=== PATIENT | male | born 1955 | race African-American/Black ===

== ENCOUNTER 2017-03-07 20:50 | Emergency (ER) | payer MEDICAID ==
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
[2017-03-07 21:48] VITALS: BP 178/111
== END 2017-03-07 21:48 | disposition short-term general hospital (02) ==
LOC: UCEAST 20:50
DX: R51 Headache (principal); R06.00 Dyspnea, unspecified; R41.0 Disorientation, unspecified; Z88.6 Allergy status to analgesic agent; E78.5 Hyperlipidemia, unspecified; I10 Essential (primary) hypertension; J45.909 Unspecified asthma, uncomplicated; E66.9 Obesity, unspecified; F17.210 Nicotine dependence, cigarettes, uncomplicated
CPT/HCPCS: 93005; 99213; G0463

== ENCOUNTER 2017-03-07 22:02 | Emergency (ER) | payer MEDICAID ==
[2017-03-07] MEDS ORDERED: NS 0.9% 1000 ML* 1,000 ML IV SCH (22:15)
[2017-03-07 22:37] LABS: Hematocrit 36 % (42-52); Hemoglobin 11.6 g/dl (14.0-18.0); Mean Corpuscular HGB Conc 32 g/dl (31-36); Mean Corpuscular Hemoglobin 28 pg (27-31); Mean Corpuscular Volume 86 fL (80-94); Mean Platelet Volume 11 um3 (7.4-10.4); Red Blood Count 4.18 10^6/ul (4.0-5.4); Red Cell Distribution Width 20 % (10.5-15); White Blood Count 8.7 10^3/ul (3.5-10.8)
[2017-03-07 22:51] LABS: ALT 17 U/L (7-52); Albumin 3.9 g/dL (3.2-5.2); Alkaline Phosphatase 62 U/L (34-104); BUN/Creatinine Ratio 24.4 (8-20); Blood Urea Nitrogen 21 mg/dL (6-24); C Reactive Protein 25.62 mg/L (< 5.00); CO2 Carbon Dioxide 26 mmol/L (22-32); Chloride 103 mmol/L (101-111); EGFR African American 116.3 (>60); EGFR Non-African American 90.4 (>60); Globulin 3.5 g/dL (2-4); Glucose 123 mg/dL (70-100); Lipase 25 U/L (11.0-82.0); Sodium 136 mmol/L (133-145); Total Protein 7.4 g/dL (6.4-8.9)
[2017-03-07 22:54] LABS: Anion Gap 7 mmol/L (2-11)
[2017-03-07 22:59] LABS: TSH (Thyroid Stimulating Horm) 3.09 mcIU/mL (0.34-5.60)
[2017-03-07] MEDS ORDERED: Iohexol 350* (CONTRAST) 500 ML MDV IV ONE (23:59)
[2017-03-08] MEDS ORDERED: Clopidogrel TAB* 75 MG PO ONE (00:03)
[2017-03-08 00:12] LABS: Magnesium 2.3 mg/dL (1.9-2.7)
[2017-03-08 01:40] VITALS: BP 152/91
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
--- NOTE | 2017-03-08 07:43 | RAD ---
HISTORY: Intermittent left face arm and leg weakness COMPARISONS: None TECHNIQUE: Multiple contiguous axial CT scans were obtained of the head without intravenous contrast. FINDINGS: HEMORRHAGE/INFARCT: There is no hemorrhage or acute infarct. MASSES/SHIFT: There is no mass or shift. EXTRA-AXIAL SPACES: There are no extra-axial fluid collections. SULCI AND VENTRICLES: The sulci and ventricles are normal in size and position for the patient's stated age. CEREBRUM: There are no focal parenchymal abnormalities. BRAINSTEM: There are no focal parenchymal abnormalities. CEREBELLUM: There are no focal parenchymal abnormalities. VESSELS: The vessels are grossly normal. PARANASAL SINUSES: The paranasal sinuses are clear. ORBITS: The orbits are unremarkable. BONES AND SOFT TISSUE: No bone or soft tissue abnormalities are noted. OTHER: None IMPRESSION: NO ACUTE INTRACRANIAL PATHOLOGY.
--- NOTE | 2017-03-08 07:44 | RAD ---
INDICATION: Intermittent weakness. COMPARISON: There are no prior studies available for comparison. TECHNIQUE: An AP view of the chest was obtained sitting. FINDINGS: The heart is within normal limits in size. The lungs are clear. No pleural effusion is present. IMPRESSION: NO EVIDENCE FOR ACTIVE CARDIOPULMONARY DISEASE.
--- NOTE | 2017-03-08 08:12 | RAD ---
HISTORY: Intermittent left face arm and leg weakness COMPARISONS: None TECHNIQUE: Multiple contiguous axial CT scans were obtained of the head and neck After the administration of nonionic intravenous contrast timed to the systemic arterial phase of contrast enhancement. Coronal and sagittal multiplanar reformations are submitted for review. Multiple 3-D maximum intensity projection reconstructions are also submitted for review. FINDINGS: Evaluation is markedly limited by suboptimal contrast opacification. CTA NECK: AORTIC ARCH: There is a bovine configuration, with the left common carotid artery originating from the brachiocephalic trunk. There is no ostial or proximal stenosis of the cephalic great vessels. RIGHT VERTEBRAL ARTERY: The right vertebral artery is patent along its course, without stenosis. LEFT VERTEBRAL ARTERY: The left vertebral artery is patent along its course, without stenosis. DOMINANCE: The left vertebral artery is dominant. RIGHT COMMON CAROTID ARTERY: The right common carotid artery is patent. The right carotid bifurcation occurs at C3-C4 RIGHT INTERNAL CAROTID ARTERY: There is atheromatous disease of the right carotid bifurcation, without right internal carotid artery stenosis by NASCET criteria. RIGHT EXTERNAL CAROTID ARTERY: The right external carotid artery is unremarkable. LEFT COMMON CAROTID ARTERY: The left common carotid artery is patent. The left carotid bifurcation occurs at C3-C4 LEFT INTERNAL CAROTID ARTERY: There is atheromatous disease of the left carotid bifurcation, without left internal carotid artery stenosis by NASCET criteria. LEFT EXTERNAL CAROTID ARTERY: The left external carotid artery is unremarkable. VENOUS CIRCULATION: The venous system is unremarkable. SALIVARY GLANDS: The parotid glands, submandibular glands, sublingual glands are normal. NASAL CAVITY/NASOPHARYNX: The nasal cavity and nasopharynx are normal. ORAL CAVITY/OROPHARYNX: The oral cavity is obscured by streak artifact from dental amalgam. The visualized oral cavity and oropharynx are unremarkable. 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 LUNG APICES: There is right apical bullous disease THYROID GLAND: The thyroid gland is normal. LYMPH NODES: There is no lymphadenopathy by size criteria. BONES AND SOFT TISSUES: Degenerative changes are noted of the spine CTA HEAD: INTRACRANIAL CIRCULATION: There is no aneurysm, vascular malformation, occlusion, or stenosis of the visualized intracranial circulation. The anterior communicating artery complex is clear. The posterior communicating arteries are diminutive, if present. This VENOUS CIRCULATION: The venous system is unremarkable. PERFUSION: There is no obvious parenchymal perfusion deficit. HEMORRHAGE/INFARCT: There is no hemorrhage or acute infarct. MASSES/SHIFT: There is no mass or shift. EXTRA-AXIAL SPACES: There are no extra-axial fluid collections. SULCI AND VENTRICLES: The sulci and ventricles are normal in size and position for the patient's stated age. CEREBRUM: There are no focal parenchymal abnormalities. BRAINSTEM: There are no focal parenchymal abnormalities. CEREBELLUM: There are no focal parenchymal abnormalities. PARANASAL SINUSES: The paranasal sinuses are clear. ORBITS: The orbits are unremarkable. BONES AND SOFT TISSUE: No bone or soft tissue abnormalities are noted. OTHER: There is no abnormal enhancement. IMPRESSION: 1. LIMITED STUDY. 2. WITHIN THE LIMITATIONS OF STUDY, THERE IS NO ANEURYSM, VASCULAR MALFORMATION, OCCLUSION, OR STENOSIS OF THE INTRACRANIAL CIRCULATION. 3. NO INTERNAL CAROTID ARTERY STENOSIS BY NASCET CRITERIA. 4. LEFT LATERAL LARYNGOCELE. PRELIMINARY FINDINGS WERE REVIEWED WITH DR. GEORGES ON THE MORNING OF 2016 CPT II Codes: 3100F
== END 2017-03-08 01:38 | disposition left against medical advice (07) ==
LOC: ED 22:02
DX: G45.9 Transient cerebral ischemic attack, unspecified (principal); R51 Headache; R53.1 Weakness; R10.84 Generalized abdominal pain; Z53.21 Procedure and treatment not carried out due to patient leaving prior to being seen by health care provider
CPT/HCPCS: 36415; 70450; 70496; 70498; 71010; 80053; 83605; 83690; 83735; 84443; 84484; 85025; 85610; 85730; 86140; 96360; 99285; A9270-GY; Q9967

== ENCOUNTER 2017-05-19 11:09 | Emergency (ER) | payer OTHER ==
[2017-05-19 11:33] VITALS: BP 164/89
[2017-05-19] MEDS ORDERED: Clindamycin CAP* 150 MG PO ONE ×2 (12:39→12:42)
[2017-05-19] MEDS ORDERED: Ketorolac INJ* 30 MG/ML 1 ML VIAL IM ONE (12:40)
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
== END 2017-05-19 13:15 | disposition home or self-care (01) ==
LOC: UCEAST 11:09
DX: F15.90 Other stimulant use, unspecified, uncomplicated (principal); Z72.0 Tobacco use; K04.7 Periapical abscess without sinus
CPT/HCPCS: 96372; 99212; A9270-GY; G0463; J1885

== ENCOUNTER 2017-05-19 14:55 | Emergency (ER) | payer OTHER ==
[2017-05-19 16:39] LABS: Hematocrit 34 % (42-52); Hemoglobin 10.9 g/dl (14.0-18.0); Mean Corpuscular HGB Conc 33 g/dl (31-36); Mean Corpuscular Hemoglobin 28 pg (27-31); Mean Corpuscular Volume 87 fL (80-94); Mean Platelet Volume 9 um3 (7.4-10.4); Red Blood Count 3.88 10^6/ul (4.0-5.4); Red Cell Distribution Width 19 % (10.5-15); White Blood Count 8.9 10^3/ul (3.5-10.8)
[2017-05-19 16:41] LABS: Add Diff/Slide Review? Slide Review Added; Comments Flag Yes
[2017-05-19 16:49] LABS: Albumin 3.7 g/dL (3.2-5.2); BUN/Creatinine Ratio 23.5 (8-20); Calcium 9.1 mg/dL (8.6-10.3); EGFR African American 124.6 (>60); EGFR Non-African American 96.9 (>60); Globulin 3.8 g/dL (2-4); Potassium 3.7 mmol/L (3.5-5.0); Total Bilirubin 0.6 mg/dL (0.2-1.0); Total Protein 7.5 g/dL (6.4-8.9)
[2017-05-19] MEDS ORDERED: Iohexol 300* (CONTRAST) 10 ML SDV IV ONE (16:55)
--- NOTE | 2017-05-19 17:31 | RAD ---
indication: Dental abscess x5 days COMPARISON: None A CT scan of the maxillofacial bones was performed after the intravenous injection of 50 mL Omnipaque 300. Contiguous axial sections were obtained from the level of the hyoid bone to just above the frontal sinuses. Findings: Soft tissues: There is swelling and induration of the soft tissues overlying the midline and left mandible. There is multifocal gas immediately adjacent to the external left mandible. There is no definite drainable fluid collection. At the right of midline there is a submandibular lymph node measuring 1.3 cm in short axis diameter (axial image 5 and coronal image 31). Close to the angle of the left mandible there is a subcutaneous lymph node measuring 1.1 cm in short axis diameter. There is a top normal left level 1 cervical chain lymph node measuring 1.3 cm in short axis diameter (coronal image 55). At the left parotid gland there are at least 2 soft tissue nodules measuring 5 and 7 mm in short axis diameter. These are most likely small lymph nodes, possibly reactive related to the peridental findings. Bones: The mandible is intact. There are no definite signs of osteomyelitis. Orbits: The globes are round. The optic nerves are symmetric. The extraocular musculature is normal. There is no post septal or intraconal inflammatory change. There is no retrobulbar hematoma. Paranasal Sinuses: The paranasal sinuses are clear. Visualized brain: The limited views of the brain do not demonstrate any acute abnormality or extra-axial hemorrhage. IMPRESSION: 1. CT findings are consistent with phlegmonous change external and immediately adjacent to the left anterior mandible. Foci of gas adjacent to the mandible could be seen in the setting of infection. There are no signs of osteomyelitis involving the mandible. There is no definite drainable fluid collection. 2. Mild left-sided lymphadenopathy is consistent with the patient's presentation of phlegmonous dental collection.
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
[2017-05-19 18:14] VITALS: BP 154/90
== END 2017-05-19 18:13 | disposition home or self-care (01) ==
LOC: ED 14:55
DX: K04.7 Periapical abscess without sinus (principal); I10 Essential (primary) hypertension; Z79.899 Other long term (current) drug therapy; F17.210 Nicotine dependence, cigarettes, uncomplicated
CPT/HCPCS: 36415; 70487; 80053; 83605; 85025; 99283; Q9967

== ENCOUNTER 2018-05-16 15:32 | Emergency (ER) | payer OTHER ==
--- OUTSIDE RECORDS SUMMARY | 2018-05-16 15:37 | XMS REPORT ---
:1955 External Reference #:[id number] Author Organization [facility] Address [address] [place] [address] Phone [phone] Care Team Providers Name Role Phone Joy Hays MD Primary Care Physician Unavailable Payers Type Date Identification Numbers Payment Provider Subscriber Medicaid Expires: Policy Number: [id number] Medicaid Jean Pierre Hurst 2017 Group Name: 1 1 [address] PayID: [id number] [place] [address] Commercial Policy Number: [id number] [place] Medicaid Jean Pierre Hurst PayID: [id number] [address] [address] [place] [address] Commercial Expires: Policy Number: [employer] Jean Pierre Hurst 2017 [id number] [employer] PayID: [id number] [address] [address] [place] [address] Problems Date Description Provider Status Onset: 08/21/2014 Benign hypertension Regulojimmy Gan NP Active Onset: 08/21/2014 Hyperlipidemia Regulojimmy Gan NP Active Onset: 08/21/2014 Gastroesophageal reflux disease Regulo Gan [employer] RE[employer]ER Active Onset: 08/21/2014 Asthma without status asthmaticus Regulo Gan NP Active Onset: 08/21/2014 Viral hepatitis C Regulo Gan NP Active Onset: 08/21/2014 Cannot sustain an erection Regulo Gan NP Active Onset: 09/17/2014 Impaired fasting glycaemia Regulo Gan NP Active Onset: 01/11/2017 Obstructive sleep apnea syndrome Cara Mcgee DNP, RN, Active MEDICATION AID-BC Onset: 01/11/2017 Hypersomnia Cara Mcgee DNP, RN, Active MEDICATION AID-BC Onset: 02/24/2017 Spinal stenosis of lumbar region Inder Ragsdale M.D. Active Onset: 04/03/2017 Neurogenic claudication Inder Ragsdale M.D. Active co-occurrent and due to spinal stenosis of lumbar region Family History Date Family Member(s) Problem(s) Comments General No family history reported Father Lung Cancer Mother Hypertension Mother Heart Disease Mother Diabetes Social History Type Date Description Comments Marital Status Lives With Occupation Disabled Occupation Unemployed Cigarette Use Light tobacco smoker (10 or 1/2 pack/day x 20 yrs, fewer cigarettes/day) Onset smoking age 8: smoked 2 ppd x 15 years and 1/2 ppd x 30+years est 45 pack year history. 10-15/ day 06/21/17 ETOH Use Rarely consumes alcohol Smoking Patient is a current smoker, 1/2PPD, started smoking at smokes every day age 8yrs -15/ day 06/21/17 Recreational Drug Use Denies Drug Use Daily Caffeine Consumes on average 1 cup of regular coffee per day Daily Caffeine Consumes on average 3 sodas 2-5 per day Exercise Type/Frequency Does not exercise Allergies, Adverse Reactions, Alerts Date Description Reaction Status Severity Comments 08/20/2014 Aspirin Nausea and Vomiting active Mild to Moderate 01/11/2017 Hay Fever active Medications Medication Date Status Form Strength Qnty SIG Indications Ordering Provider Tramadol HCL 05/07 Active Tablets 50mg 20tab 1 by M51.36 Inder s mouth [place], every 6 M.D. hours as needed pain Arnuity Ellipta 04/10 Active Aerosol 100mcg/Ac 30uni one puff t ts once FERNANDO Gan daily Valium /11 Active Tablets 10mg 1tabs Take 30 M51.16 Regulo /2017 minutes FERNANDO Gan prior to MRI Sildenafil 10/11 Active Tablets 100mg 10tab 1 tab 30 Regulo s mins FERNANDO Gan prior to intercour se Chlorthalidone 10/11 Active Tablets 25mg 30tab 1 by I10 s mouth FERNANDO Gan every day Lidocaine 08/25 Active Cream 4% 30gm apply to M25.551 Regulo 2018 affected FERNANDO Gan areas 3 or 4 times daily Trazodone HCL 05/23 Active Tablets 50mg 30tab 1-2 Regulo s tablets FERNANDO Gan at bedtime as needed. Miralax 05/04 Active Powder 3350NF 510un dissolve K59.00 Regulo its 1 FERNANDO Gan tablespoo nful once daily in liquid as needed Clopidogrel 03/08 Active Tablets 75mg 1 tab Wallace, Bisulfate daily Kory Santiago MD Cane/Adjustable/A 11/10 Active Misc 1unit Use while M79.604 Regulo luminum/Round /2016 s ambulatin FERNANDO Gan Handle g Loratadine 11/10 Active Tablets 10mg 30tab Take 1 Joy /2017 s Tablet Cotton, Every Day M.D. Nebulizer 11/03 Active Device 1unit use for J45.20 Regulo s albuterol FERNANDO Gan nebulized solution up to 4 times a day. Nebulizer 11/03 Active Kit QS for use 4 J45.20 Regulo Kit/Tubing/Mouthp /2014 times FERNANDO Gan iece daily as needed Albuterol Sulfate 11/03 Active Nebulizer (2.5mg/3M 100un 1 vial J45.20 Regulo L) 0.083% its every 6 FERNANDO Gan hour as needed. Amlodipine 11/03 Active Tablets 10-320mg 30tab 1 tab I10 Regulo Besylate-Valsarta s once FERNANDO Gan n daily Atorvastatin 08/20 Active Tablets 10mg 30tab take 1 Regulo Calcium s tablet FERNANDO Gan every day Proair HFA 08/20 Active Aerosol 108(90Bas 8.5un take 2 Regulo e) its puffs FERNANDO Gan mcg/Act every 4 hours as needed for shortness of breath. Omeprazole 08/[address] 20mg 30cap Take One K21.9 Regulo s Capsule FERNANDO Gan Every Day Fluticasone 08/20 Active Suspension 50mcg/Act 16uni Instill 1 Regulo Propionate ts [place] FERNANDO Gan Each Nostril Every Day Naproxen 08/20 Active Tablets 500mg 60tab Take 1 Regulo s Tablet By FERNANDO Gan Mouth Twice A Day as Needed With Food Flovent HFA 10/09 Hx Aerosol 220mcg/Ac 12gm 2 puffs Regulo t twice Malik, [employer] - daily, 04/10 rinse mouth after use. Azithromycin 10/09 Hx Tablets 250mg 6tabs 2 tabs by J45.21 Regulo mouth Malik, [employer] - every day 10/14 x1 day, tab by mouth every day x 4 days Guaifenesin-Codei 10/09 Hx Syrup 100-10mg/ 240ml 5-10ml J20.9 Regulo 5ML every 4-6 Malik [employer] REPA[employer]ER - hours for 10/23 cough Flovent HFA 08/29 Hx Aerosol 110mcg/Ac 12gm 2 puffs Regulo t twice Malik, [employer] REPA[employer]ER - daily, 10/09 rinse mouth after use. Tramadol HCL 08/25 Hx Tablets 50mg 20tab 1-2 M25.551 Regulo s tablets Malik, [employer]ER - every 8 02/15 hours needed for pain. Qvar Redihaler 08/25 Hx Aerosol 80mcg/Act 10.6u Take 2 nits Inhalatio FERNANDO Gan - ns Twice 02/15 Daily Oxycodone-Acetami 05/23 Hx Tablets 7.5-325mg 20tab one Regulo nop s tablet FERNANDO Gan - every 4-6 08/24 hours for pain Amoxicillin/Clavu 05/17 Hx Tablets 875-125mg 14tab 1 by K08.89 Francois butts s mouth Shauna, - twice a M.D. Hydroxyzine HCL 05/12 Hx Tablets 25mg 60tab 1-2 Regulo s tablets Malik [employer] - by mouth 05/23 Qhs prn sleep. May also take 1-2 tabs Q 6 hrs for anxiety Valium 01/25 Hx Tablets 10mg 1tabs Take 30 M51.16 Regulo minutes FERNANDO Gan - prior to 02/24 Meloxicam 01/25 Hx Tablets 15mg 30tab Take 1 Regulo s Tablet By Malik [employer] - Mouth 03/09 Every Day With Food as Needed Baclofen 12/07 Hx Tablets 10mg 30tab Take 1/2 M79.604 Regulo s Tablet By FERNANDO Gan - Mouth 08/24 Every Hours as Needed For Muscle Spasm Gabapentin 11/10 Hx Capsules 300mg 60cap 1 cap PO M79.604 Regulo s QHS. FERNANDO Gan - After 12/07 days may oncrease to one cap bid. Qvar 11/10 Hx Aerosol 80mcg/Act 8.7un Take 2 Regulo its Puffs FERNANDO Gan - Twice A Qvar 02/11 Hx Aerosol 80mcg/Act 8.700 2 puffs gm twice FERNANDO Gan - daily 11/10 Viagra 02/09 Hx Tablets 100mg 10tab take one Regulo s tablet at FERNANDO Gan - least 30 04/05 mint prior to intercour se. Hydrochlorothiazi 01/28 Hx Tablets 25mg 30tab Take 1 I10 Regulo s Tablet FERNANDO aGn - Every Day 04/05 Valium 12/12 Hx Tablets 10mg 1tabs Take 30 minutes FERNANDO Gan - prior to 01/02 Viagra 11/03 Hx Tablets 50mg 302.72 Regulo FERNANDO Gan - 11/03 Viagra 11/03 Hx Tablets 50mg 5tabs one tablet FERNANDO Gan - 30-60 prior to intercour se Flovent Diskus 11/03 Hx Aerosol 100mcg/Bl 1unit 1 493.00 ist s inhalatio FERNANDO Gan - n twice 02/11 daily. Augmentin 09/17 Hx Tablets 875-125mg 14tab 1 tablet 466.0 s by mouth FERNANDO Gan - q12 hours 09/23 for days Cialis 08/20 Hx Tablets 20mg 30tab one tab 302.72 Regulo s 30 FERNANDO Gan - minutes 11/03 prior intercour se Amlodipine 08/20 Hx Tablets 10-160mg 30tab Take 1 Regulo Besylate-Valsarta s Tablet FERNANDO Gan n - Every Day 11/03 Lisinopril 00 Hx Tablets 40mg 1 by Unknown /0000 mouth - every day 08/20 Hydrochlorothiazi 00 Hx Tablets 25mg 1 by Unknown de /0000 mouth - every day 08/20 Amlodipine Hx Tablets 10mg 1 by Regulo Besylate /0000 mouth FERNANDO Gan - every day 08/20 Proair HFA 00 Hx Aerosol 108(90Bas 2 puffs Unknown /0000 e) by mouth - mcg/Act every 4 08/20 hours needed Fluticasone Hx Suspension 50mcg/Act 16gm 2 sprays [place], Propionate / each MD Diane - nostril 08/20 daily needed Clindamycin HCL Hx Capsules 300mg Sarbescy, /0000 Siena DDS - 08/24 Penicillin V Hx Tablets 250mg Unknown Potassium /0000 - 08/24 Hydrocodone-Aceta Hx Tablets 5-325mg Unknown minophen /0000 - 05/22 Immunizations CPT Code Status Date Vaccine Lot # 84372 Given 03/08/2011 Pneumonia Vaccine [id number] Given 04/15/2009 Afluria Vaccine 15749 Given 12/31/2008 Tetanus And Diptheria (Td) For Adult Use Preservative Free 41572 Given 12/31/2008 Measles Mumps And Rubella MMR Vital Signs Date Vital Result Comment 05/09/2018 Height 72 inches 6'0" Weight 263.00 lb Heart Rate 83 /min BP Systolic 169 mmHg BP Diastolic 106 mmHg BP Systolic Recheck 162 mmHg BP Diastolic Recheck 108 mmHg O2 % BldC Oximetry 97 % BMI (Body Mass Index) 35.7 kg/m2 05/07/2018 Height 72 inches 6'0" Weight 263.00 lb Heart Rate 88 /min BP Systolic Sitting 170 mmHg Lue lg cuff BP Diastolic Sitting 118 mmHg Lue lg cuff Pain Level 7 BMI (Body Mass Index) 35.7 kg/m2 04/05/2018 Height 72 inches 6'0" Weight 263.00 lb Heart Rate 86 /min BP Systolic 178 mmHg BP Diastolic 114 mmHg BP Systolic Recheck 160 mmHg BP Diastolic Recheck 100 mmHg Body Temperature 97.6 F O2 % BldC Oximetry 100 % BMI (Body Mass Index) 35.7 kg/m2 02/15/2018 Height 72 inches 6'0" Weight 263.00 lb Heart Rate 94 /min BP Systolic Sitting 153 mmHg BP Diastolic Sitting 101 mmHg O2 % BldC Oximetry 97 % BMI (Body Mass Index) 35.7 kg/m2 10/17/2017 Weight 282.25 lb Heart Rate 96 /min BP Systolic 136 mmHg BP Diastolic 72 mmHg Body Temperature 97.2 F O2 % BldC Oximetry 95 % 10/09/2017 Weight 278.00 lb Heart Rate 94 /min BP Systolic Sitting 146 mmHg BP Diastolic Sitting 98 mmHg Body Temperature 97.6 F O2 % BldC Oximetry 90 % Recheck 95% 08/25/2017 Weight 285.25 lb Heart Rate 92 /min BP Systolic Sitting 132 mmHg BP Diastolic Sitting 92 mmHg O2 % BldC Oximetry 98 % 06/28/2017 Height 72 inches 6'0" Weight 297.00 lb Heart Rate 90 /min BP Systolic Sitting 150 mmHg BP Diastolic Sitting 88 mmHg Pain Level 4 BMI (Body Mass Index) 40.3 kg/m2 06/21/2017 Height 72 inches 6'0" Weight 297.38 lb with shoes Heart Rate 100 /min BP Systolic Sitting 134 mmHg Rue large cuff BP Diastolic Sitting 100 mmHg Rue large cuff Respiratory Rate 18 /min O2 % BldC Oximetry 97 % On Ra BMI (Body Mass Index) 40.3 kg/m2 05/23/2017 Height 72 inches 6'0" Weight 302.00 lb Heart Rate 89 /min BP Systolic Sitting 134 mmHg BP Diastolic Sitting 92 mmHg Body Temperature 97.3 F O2 % BldC Oximetry 96 % BMI (Body Mass Index) 41.0 kg/m2 05/17/2017 Height 72 inches 6'0" Weight 298.00 lb Heart Rate 102 /min BP Systolic Sitting 132 mmHg BP Diastolic Sitting 96 mmHg Body Temperature 97.0 F O2 % BldC Oximetry 97 % BMI (Body Mass Index) 40.4 kg/m2 05/04/2017 Weight 296.75 lb Heart Rate 88 /min BP Systolic 140 mmHg BP Diastolic 88 mmHg O2 % BldC Oximetry 99 % 04/03/2017 Height 72 inches 6'0" Weight 303.00 lb Heart Rate 88 /min BP Systolic Sitting 140 mmHg BP Diastolic Sitting 90 mmHg Pain Level 8 BMI (Body Mass Index) 41.1 kg/m2 03/09/2017 Weight 303.00 lb Heart Rate 88 /min BP Systolic Sitting 142 mmHg BP Diastolic Sitting 90 mmHg Pain Level 7 Lower back 02/24/2017 Height 72 inches 6'0" Weight 300.00 lb Heart Rate 82 /min BP Systolic Sitting 150 mmHg BP Diastolic Sitting 82 mmHg Pain Level 8 BMI (Body Mass Index) 40.7 kg/m2 02/22/2017 Height 72 inches 6'0" Weight 300.00 lb Heart Rate 84 /min BP Systolic Sitting 156 mmHg BP Diastolic Sitting 110 mmHg Respiratory Rate 14 /min O2 % BldC Oximetry 94 % BMI (Body Mass Index) 40.7 kg/m2 01/25/2017 Heart Rate 78 /min BP Systolic Sitting 134 mmHg BP Diastolic Sitting 96 mmHg O2 % BldC Oximetry 97 % 01/11/2017 Height 72 inches 6'0" Weight 300.00 lb Heart Rate 76 /min BP Systolic Sitting 160 mmHg BP Diastolic Sitting 102 mmHg Respiratory Rate 14 /min O2 % BldC Oximetry 98 % BMI (Body Mass Index) 40.7 kg/m2 12/15/2016 Heart Rate 86 /min BP Systolic Sitting 128 mmHg BP Diastolic Sitting 86 mmHg O2 % BldC Oximetry 95 % 12/12/2016 Height 72 inches 6'0" Weight 294.00 lb Heart Rate 90 /min BP Systolic Sitting 136 mmHg BP Diastolic Sitting 88 mmHg Respiratory Rate 20 /min O2 % BldC Oximetry 95 % room air BMI (Body Mass Index) 39.9 kg/m2 Neck Circumference in inches 18.5 12/07/2016 Heart Rate 77 /min BP Systolic Sitting 142 mmHg BP Diastolic Sitting 92 mmHg O2 % BldC Oximetry 95 % 11/10/2016 Weight 285.75 lb Heart Rate 93 /min BP Systolic 126 mmHg BP Diastolic 66 mmHg Body Temperature 97.3 F O2 % BldC Oximetry 95 % 03/03/2015 Weight 265.00 lb Heart Rate 85 /min BP Systolic Sitting 142 mmHg BP Diastolic Sitting 94 mmHg BP Systolic Recheck 138 mmHg BP Diastolic Recheck 88 mmHg 02/09/2015 Height 71.5 inches 5'11.50" Weight 266.00 lb Heart Rate 94 /min BP Systolic Sitting 138 mmHg BP Diastolic Sitting 94 mmHg Body Temperature 97.9 F O2 % BldC Oximetry 98 % BMI (Body Mass Index) 36.6 kg/m2 01/28/2015 Weight 264.50 lb Heart Rate 103 /min BP Systolic Sitting 156 mmHg BP Diastolic Sitting 103 mmHg BP Systolic Recheck 152 mmHg BP Diastolic Recheck 96 mmHg 12/04/2014 Height 71 inches 5'11" Weight 268.00 lb Heart Rate 102 /min BP Systolic 143 mmHg BP Diastolic 88 mmHg Body Temperature 98.6 F O2 % BldC Oximetry 95 % BMI (Body Mass Index) 37.4 kg/m2 11/03/2014 Weight 267.00 lb Heart Rate 95 /min BP Systolic Sitting 149 mmHg BP Diastolic Sitting 93 mmHg Body Temperature 97.4 F O2 % BldC Oximetry 96 % Peak Flow Meter 500, 50 09/17/2014 Height 71 inches 5'11" Weight 271.00 lb Heart Rate 93 /min BP Systolic 143 mmHg 140/90 manual recheck BP Diastolic 93 mmHg 140/90 manual recheck Body Temperature 98.0 F BMI (Body Mass Index) 37.8 kg/m2 08/20/2014 Height 71 inches 5'11" Weight 277.00 lb Heart Rate 85 /min BP Systolic 145 mmHg BP Diastolic 90 mmHg Body Temperature 98.3 F BMI (Body Mass Index) 38.6 kg/m2 Results Test Date Test Result H/L Range Note CBC Auto Diff 05/03/2018 White Blood Count 6.0 10^3/uL 3.5-10.8 Red Blood Count 4.16 10^6/uL 4.00-5.40 Hemoglobin 13.5 g/dL Low 14.0-18.0 Hematocrit 40 % Low 42-52 Mean Corpuscular Volume 97 fL High 80-94 Mean Corpuscular Hemoglobin 32 pg High 27-31 Mean Corpuscular HGB Conc 34 g/dL 31-36 Red Cell Distribution Width 17 % High 10.5-15 Platelet Count 130 10^3/uL Low 150-450 1 Mean Platelet Volume 10.4 fL 7.4-10.4 Large Platelets Present Abs Neutrophils 3.3 10^3/uL 1.5-7.7 Abs Lymphocytes 2.1 10^3/uL 1.0-4.8 Abs Monocytes 0.5 10^3/uL 0-0.8 Abs Eosinophils 0.1 10^3/uL 0-0.6 Abs Basophils 0 10^3/uL 0-0.2 Abs Nucleated RBC 0 10^3/uL Granulocyte % 55.6 % 38-83 Lymphocyte % 34.4 % 25-47 Monocyte % 7.8 % High 0-7 Eosinophil % 1.5 % 0-6 Basophil % 0.7 % 0-2 Nucleated Red Blood Cells % 0.1 Comp Metabolic Panel 05/03/2018 Sodium 138 mmol/L 135-145 Potassium 3.4 mmol/L Low 3.5-5.0 Chloride 102 mmol/L 101-111 Co2 Carbon Dioxide 28 mmol/L 22-32 Anion Gap 8 mmol/L 2-11 Glucose 103 mg/dL High 70-100 Blood Urea Nitrogen 11 mg/dL 6-24 Creatinine 0.73 mg/dL 0.67-1.17 BUN/Creatinine Ratio 15.1 8-20 Calcium 9.2 mg/dL 8.6-10.3 Total Protein 7.0 g/dL 6.4-8.9 Albumin 3.7 g/dL 3.2-5.2 Globulin 3.3 g/dL 2-4 Albumin/Globulin Ratio 1.1 1-3 Total Bilirubin 0.30 mg/dL 0.2-1.0 Alkaline Phosphatase 60 U/L 34-104 Alt 31 U/L 7-52 Ast 27 U/L 13-39 Egfr Non- 108.9 >60 Egfr 131.7 >60 2 Laboratory test finding 05/03/2018 TSH (Thyroid Stim Horm) 1.25 mcIU/mL 0.34-5.60 Vitamin B12 281 pg/mL 180-914 3 Cell Morphology 05/03/2018 Hypochromasia 1+ Anisocytosis 1+ CBC Auto Diff 05/19/2017 White Blood Count 8.9 10^3/uL 3.5-10.8 Red Blood Count 3.88 10^6/uL Low 4.0-5.4 Hemoglobin 10.9 g/dL Low 14.0-18.0 Hematocrit 34 % Low 42-52 Mean Corpuscular Volume 87 fL 80-94 Mean Corpuscular Hemoglobin 28 pg 27-31 Mean Corpuscular HGB Conc 33 g/dL 31-36 Red Cell Distribution Width 19 % High 10.5-15 Platelet Count 206 10^3/uL 150-450 Mean Platelet Volume 9 um3 7.4-10.4 Abs Neutrophils 6.2 10^3/uL 1.5-7.7 Abs Lymphocytes 1.7 10^3/uL 1.0-4.8 Abs Monocytes 0.7 10^3/uL 0-0.8 Abs Eosinophils 0.1 10^3/uL 0-0.6 Abs Basophils 0.1 10^3/uL 0-0.2 Abs Nucleated RBC 0.01 10^3/uL Granulocyte % 69.4 % 38-83 Lymphocyte % 19.6 % Low 25-47 Monocyte % 8.3 % 1-9 Eosinophil % 1.6 % 0-6 Basophil % 1.1 % 0-2 Nucleated Red Blood Cells % 0.1 Laboratory test finding 05/19/2017 Lactic Acid 0.7 mmol/L 0.5-2.0 4 Comp Metabolic Panel 05/19/2017 Sodium 135 mmol/L 133-145 Potassium 3.7 mmol/L 3.5-5.0 Chloride 104 mmol/L 101-111 Co2 Carbon Dioxide 25 mmol/L 22-32 Anion Gap 6 mmol/L 2-11 Glucose 103 mg/dL High 70-100 Blood Urea Nitrogen 19 mg/dL 6-24 Creatinine 0.81 mg/dL 0.67-1.17 BUN/Creatinine Ratio 23.5 High 8-20 Calcium 9.1 mg/dL 8.6-10.3 Total Protein 7.5 g/dL 6.4-8.9 Albumin 3.7 g/dL 3.2-5.2 Globulin 3.8 g/dL 2-4 Albumin/Globulin Ratio 1.0 1-3 Total Bilirubin 0.60 mg/dL 0.2-1.0 Alkaline Phosphatase 57 U/L 34-104 Alt 15 U/L 7-52 Ast 15 U/L 13-39 Egfr Non- 96.9 >60 Egfr 124.6 >60 5 CBC Auto Diff 05/04/2017 White Blood Count 6.8 10^3/uL 3.5-10.8 Red Blood Count 4.22 10^6/uL 4.0-5.4 Hemoglobin 11.7 g/dL Low 14.0-18.0 Hematocrit 37 % Low 42-52 Mean Corpuscular Volume 87 fL 80-94 Mean Corpuscular Hemoglobin 28 pg 27-31 Mean Corpuscular HGB Conc 32 g/dL 31-36 Red Cell Distribution Width 19 % High 10.5-15 Platelet Count 200 10^3/uL 150-450 Mean Platelet Volume 9 um3 7.4-10.4 Abs Neutrophils 4.1 10^3/uL 1.5-7.7 Abs Lymphocytes 1.8 10^3/uL 1.0-4.8 Abs Monocytes 0.5 10^3/uL 0-0.8 Abs Eosinophils 0.2 10^3/uL 0-0.6 Abs Basophils 0.1 10^3/uL 0-0.2 Abs Nucleated RBC 0 10^3/uL Granulocyte % 61.0 % 38-83 Lymphocyte % 27.3 % 25-47 Monocyte % 7.8 % 1-9 Eosinophil % 3.0 % 0-6 Basophil % 0.9 % 0-2 Nucleated Red Blood Cells % 0 Comp Metabolic Panel 05/04/2017 Sodium 139 mmol/L 133-145 Potassium 3.6 mmol/L 3.5-5.0 Chloride 102 mmol/L 101-111 Co2 Carbon Dioxide 30 mmol/L 22-32 Anion Gap 7 mmol/L 2-11 Glucose 113 mg/dL High 70-100 Blood Urea Nitrogen 13 mg/dL 6-24 Creatinine 0.87 mg/dL 0.67-1.17 BUN/Creatinine Ratio 14.9 8-20 Calcium 9.1 mg/dL 8.6-10.3 Total Protein 7.2 g/dL 6.4-8.9 Albumin 3.8 g/dL 3.2-5.2 Globulin 3.4 g/dL 2-4 Albumin/Globulin Ratio 1.1 1-3 Total Bilirubin 0.50 mg/dL 0.2-1.0 Alkaline Phosphatase 61 U/L 34-104 Alt 18 U/L 7-52 Ast 18 U/L 13-39 Egfr Non- 89.2 >60 Egfr 114.7 >60 6 CBC Auto Diff 03/07/2017 White Blood Count 8.7 10^3/uL 3.5-10.8 Red Blood Count 4.18 10^6/uL 4.0-5.4 Hemoglobin 11.6 g/dL Low 14.0-18.0 Hematocrit 36 % Low 42-52 Mean Corpuscular Volume 86 fL 80-94 Mean Corpuscular Hemoglobin 28 pg 27-31 Mean Corpuscular HGB Conc 32 g/dL 31-36 Red Cell Distribution Width 20 % High 10.5-15 Platelet Count 195 10^3/uL 150-450 Mean Platelet Volume 11 um3 High 7.4-10.4 Abs Neutrophils 5.8 10^3/uL 1.5-7.7 Abs Lymphocytes 1.9 10^3/uL 1.0-4.8 Abs Monocytes 0.7 10^3/uL 0-0.8 Abs Eosinophils 0.2 10^3/uL 0-0.6 Abs Basophils 0.1 10^3/uL 0-0.2 Abs Nucleated RBC 0.01 10^3/uL Granulocyte % 66.5 % 38-83 Lymphocyte % 22.2 % Low 25-47 Monocyte % 8.3 % 1-9 Eosinophil % 2.2 % 0-6 Basophil % 0.8 % 0-2 Nucleated Red Blood Cells % 0.1 Laboratory test finding 03/07/2017 Lactic Acid 1.8 mmol/L 0.5-2.0 7 Inr/Protime 03/07/2017 Inr 0.90 0.89-1.11 Laboratory test finding 03/07/2017 Partial Thrombo Time 29.3 seconds 26.0 -36.3 PTT Comp Metabolic Panel 03/07/2017 Sodium 136 mmol/L 133-145 Chloride 103 mmol/L 101-111 Co2 Carbon Dioxide 26 mmol/L 22-32 Glucose 123 mg/dL High 70-100 Blood Urea Nitrogen 21 mg/dL 6-24 Creatinine 0.86 mg/dL 0.67-1.17 BUN/Creatinine Ratio 24.4 High 8-20 Calcium 9.0 mg/dL 8.6-10.3 8 Total Protein 7.4 g/dL 6.4-8.9 Albumin 3.9 g/dL 3.2-5.2 Globulin 3.5 g/dL 2-4 Albumin/Globulin Ratio 1.1 1-3 Total Bilirubin 0.40 mg/dL 0.2-1.0 Alkaline Phosphatase 62 U/L 34-104 Alt 17 U/L 7-52 Egfr Non- 90.4 >60 Egfr 116.3 >60 9 Potassium TNP mmol/L 3.5-5.0 10 Anion Gap 7 mmol/L 2-11 Ast TNP U/L Laboratory test finding 03/07/2017 Magnesium 2.3 mg/dL 1.9-2.7 Potassium Redraw 3.6 mmol/L 3.5-5.0 Ast Redraw 20 U/L Laboratory test finding 03/07/2017 Lipase 25 U/L 11.0-82.0 C Reactive Protein 25.62 mg/L High < 5.00 11 Troponin-I (TnI) 0.00 ng/mL <0.04 Magnesium TNP mg/dL 1.9-2.7 TSH (Thyroid Stim Horm) 3.09 mcIU/mL 0.34-5.60 Laboratory test finding 03/07/2017 Point of Care Glucose 147 mg/dL High 70 -100 12 Iron & Iron Binding 03/06/2017 Iron 49 g/dL Low 50-212 Capacity Unsaturated Iron Binding 434 g/dL Total Iron Binding Capacity 483 g/dL High 250-450 % Iron Saturation 10 % Low 15-55 Laboratory test finding 03/06/2017 Ferritin 15.3 ng/mL Low 24-336 CBC Auto Diff 02/09/2017 White Blood Count 6.5 10^3/uL 3.5-10.8 Red Blood Count 4.17 10^6/uL 4.0-5.4 Hemoglobin 11.5 g/dL Low 14.0-18.0 Hematocrit 37 % Low 42-52 Mean Corpuscular Volume 88 fL 80-94 Mean Corpuscular Hemoglobin 28 pg 27-31 Mean Corpuscular HGB Conc 32 g/dL 31-36 Red Cell Distribution Width 20 % High 10.5-15 Platelet Count 197 10^3/uL 150-450 Mean Platelet Volume 10 um3 7.4-10.4 Abs Neutrophils 3.7 10^3/uL 1.5-7.7 Abs Lymphocytes 1.9 10^3/uL 1.0-4.8 Abs Monocytes 0.6 10^3/uL 0-0.8 Abs Eosinophils 0.2 10^3/uL 0-0.6 Abs Basophils 0.1 10^3/uL 0-0.2 Abs Nucleated RBC 0.01 10^3/uL Granulocyte % 57.0 % 38-83 Lymphocyte % 29.6 % 25-47 Monocyte % 8.7 % 1-9 Eosinophil % 3.8 % 0-6 Basophil % 0.9 % 0-2 Nucleated Red Blood Cells % 0.1 Laboratory test finding 02/09/2017 TSH (Thyroid Stim Horm) 2.12 mcIU/mL 0.34-5.60 Vitamin B12 301 pg/mL 180-914 13 Laboratory test 12/15/2016 Hepatitis C Rna Undetected IU/mL Undetected 14 finding Quant Comp Metabolic Panel 12/07/2016 Sodium 137 mmol/L 133-145 Potassium 3.8 mmol/L 3.5-5.0 Chloride 103 mmol/L 101-111 Co2 Carbon Dioxide 28 mmol/L 22-32 Anion Gap 6 mmol/L 2-11 Glucose 107 mg/dL High 70-100 Blood Urea Nitrogen 11 mg/dL 6-24 Creatinine 0.73 mg/dL 0.67-1.17 BUN/Creatinine Ratio 15.1 8-20 Calcium 8.7 mg/dL 8.6-10.3 Total Protein 7.0 g/dL 6.4-8.9 Albumin 3.8 g/dL 3.2-5.2 Globulin 3.2 g/dL 2-4 Albumin/Globulin Ratio 1.2 1-3 Total Bilirubin 0.40 mg/dL 0.2-1.0 Alkaline Phosphatase 77 U/L 34-104 Alt 21 U/L 7-52 Ast 23 U/L 13-39 Egfr Non- 109.6 >60 Egfr 140.9 >60 15 Lipid Profile (Trig/Chol/HDL) 12/07/2016 Triglycerides 212 mg/dL 16 Cholesterol 173 mg/dL 17 HDL Cholesterol 36.2 mg/dL 18 LDL Cholesterol 94 mg/dL 19 Laboratory test 12/07/2016 Hepatitis C Antibody High Reactive Nonreactive 20 finding Magnesium 2.1 mg/dL 1.9-2.7 Order 11/03/2014 Nebulizer Treatment [id number] exp 02/07 albe Comp Metabolic Panel 09/11/2014 Sodium 140 mmol/L 133-145 21 Potassium 3.5 mmol/L 3.5-5.0 21 Chloride 104 mmol/L 101-111 21 Co2 Carbon Dioxide 31 mmol/L 22-32 21 Anion Gap 5 mmol/L 2-11 21 Glucose 112 mg/dL High 70-100 21 Blood Urea Nitrogen 12 mg/dL 6-24 21 Creatinine 0.81 mg/dL 0.67-1.17 21 BUN/Creatinine Ratio 14.8 8-20 21 Calcium 8.9 mg/dL 8.6-10.3 21 Total Protein 6.7 g/dL 6.4-8.9 21 Albumin 3.7 g/dL 3.2-5.2 21 Globulin 3.0 g/dL 2-4 21 Albumin/Globulin Ratio 1.2 1-3 21 Total Bilirubin 0.50 mg/dL 0.2-1.0 21 Alkaline Phosphatase 71 U/L 34-104 21 Alt 19 U/L 7-52 21 Ast 23 U/L 13-39 21 Egfr Non- 97.9 >60 21 Egfr 125.9 >60 21, 22 Lipid Profile (Trig/Chol/HDL) 09/11/2014 Triglycerides 159 mg/dL 21, 23 Cholesterol 127 mg/dL 21, 24 HDL Cholesterol 39.2 mg/dL 21, 25 LDL Cholesterol 56 mg/dL 21, 26 Laboratory test 09/11/2014 Hepatitis C Rna Undetected IU/mL Undetected 21, 27 finding Quantitative 1 Platelet count confirmed by estimate 05/03/18 2 Because ethnic data is not always readily available, this report includes an eGFR for both -Americans and non- Americans. The National Kid[employer] Disease Education Program (NKDEP) does not endorse the use of the MDRD equation for patients that are not between the ages of 18 and 70, are , have extremes of body size, muscle mass, or nutritional status, or are non- or non-. According to the [employer], irrespective of diagnosis, the stage of the disease is based on the level of kidney function: Stage Description GFR(mL/min/1.73 m(2)) 1 Kidney damage with normal or decreased GFR 90 2 Kidney damage with mild decrease in GFR 60-89 3 Moderate decrease in GFR 30-59 4 Severe decrease in GFR 15-29 5 Kidney failure <15 (or dialysis) 3 Normal Range 180 to 914 Indeterminate Range 145 to 180 Deficient Range <145 4 OKS Severe Sepsis and Septic Shock Management Bundle Measure requires all lactic acids initially measuring >2.0 mmol/L be repeated. 5 Because ethnic data is not always readily available, this report includes an eGFR for both -Americans and non- Americans. The National Kidney Disease Education Program (NKDEP) does not endorse the use of the MDRD equation for patients that are not between the ages of 18 and 70, are , have extremes of body size, muscle mass, or nutritional status, or are non- or non-. According to the National Kidney Foundation, irrespective of diagnosis, the stage of the disease is based on the level of kidney function: Stage Description GFR(mL/min/1.73 m(2)) 1 Kidney damage with normal or decreased GFR 90 2 Kidney damage with mild decrease in GFR 60-89 3 Moderate decrease in GFR 30-59 4 Severe decrease in GFR 15-29 5 Kidney failure <15 (or dialysis) 6 Because ethnic data is not always readily available, this report includes an eGFR for both -Americans and non- Americans. The National Kidney Disease Education Program (NKDEP) does not endorse the use of the MDRD equation for patients that are not between the ages of 18 and 70, are , have extremes of body size, muscle mass, or nutritional status, or are non- or non-. According to the National Kidney Foundation, irrespective of diagnosis, the stage of the disease is based on the level of kidney function: Stage Description GFR(mL/min/1.73 m(2)) 1 Kidney damage with normal or decreased GFR 90 2 Kidney damage with mild decrease in GFR 60-89 3 Moderate decrease in GFR 30-59 4 Severe decrease in GFR 15-29 5 Kidney failure <15 (or dialysis) 7 [facility] Severe Sepsis and Septic Shock Management Bundle Measure requires all lactic acids initially measuring >2.0 mmol/L be repeated. 8 Specimen Lipemic. Result may not be valid. 9 Because ethnic data is not always readily available, this report includes an eGFR for both -Americans and non- Americans. The National Kidney Disease Education Program (NKDEP) does not endorse the use of the MDRD equation for patients that are not between the ages of 18 and 70, are , have extremes of body size, muscle mass, or nutritional status, or are non- or non-. According to the National Kidney Foundation, irrespective of diagnosis, the stage of the disease is based on the level of kidney function: Stage Description GFR(mL/min/1.73 m(2)) 1 Kidney damage with normal or decreased GFR 90 2 Kidney damage with mild decrease in GFR 60-89 3 Moderate decrease in GFR 30-59 4 Severe decrease in GFR 15-29 5 Kidney failure <15 (or dialysis) 10 Specimen hemolyzed, spoke to Christine for recollect. 11 Acute inflammation: >10.00 12 Planning Division Superintendent: [id number] 13 Normal Range 180 to 914 Indeterminate Range 145 to 180 Deficient Range <145 14 Result in log IU/mL is Undetected. ADDITIONAL INFORMATION The quantification range of this assay is 15 to 100,000,000 IU/mL (1.18 log to 8.00 log IU/mL). Testing was performed by the [employer] AmpliPrep/HUMA TaqMan HCV Test, version 2.0 ([employer] Test Performed by: [address] [id number] 15 Because ethnic data is not always readily available, this report includes an eGFR for both -Americans and non- Americans. The National Kidney Disease Education Program (NKDEP) does not endorse the use of the MDRD equation for patients that are not between the ages of 18 and 70, are , have extremes of body size, muscle mass, or nutritional status, or are non- or non-. According to the National Kidney Foundation, irrespective of diagnosis, the stage of the disease is based on the level of kidney function: Stage Description GFR(mL/min/1.73 m(2)) 1 Kidney damage with normal or decreased GFR 90 2 Kidney damage with mild decrease in GFR 60-89 3 Moderate decrease in GFR 30-59 4 Severe decrease in GFR 15-29 5 Kidney failure <15 (or dialysis) 16 Desirable <150 Borderline high 150-199 High 200-499 Very High >500 17 Desirable <200 Borderline high 200-239 High >239 18 Low <40 Desirable: 40-60 High: >60 19 Desirable: <100 mg/dL Near Optimal: 100-129 mg/dL Borderline High: 130-159 mg/dL High: 160-189 mg/dL Very High: >189 mg/dL 20 High reactive sample are considered positive for Hepatitis C 21 FASTING 22 Because ethnic data is not always readily available, this report includes an eGFR for both -Americans and non- Americans. The National Kidney Disease Education Program (NKDEP) does not endorse the use of the MDRD equation for patients that are not between the ages of 18 and 70, are , have extremes of body size, muscle mass, or nutritional status, or are non- or non-. According to the National Kidney Foundation, irrespective of diagnosis, the stage of the disease is based on the level of kidney function: Stage Description GFR(mL/min/1.73 m(2)) 1 Kidney damage with normal or decreased GFR 90 2 Kidney damage with mild decrease in GFR 60-89 3 Moderate decrease in GFR 30-59 4 Severe decrease in GFR 15-29 5 Kidney failure <15 (or dialysis) 23 Desirable <150 Borderline high 150-199 High 200-499 Very High >500 24 Desirable <200 Borderline high 200-239 High >239 25 Low <40 Desirable: 40-60 High: >60 26 Desirable: <100 mg/dL Near Optimal: 100-129 mg/dL Borderline High: 130-159 mg/dL High: 160-189 mg/dL Very High: >189 mg/dL 27 Result in log IU/mL is Undetected. ADDITIONAL INFORMATION The quantification range of this assay is 15 to 100,000,000 IU/mL (1.18 log to 8.00 log IU/mL). Testing was performed by the HUMA AmpliPrep/HUMA TaqMan HCV Test, version 2.0 ([employer] Test Performed by: [place] [address] Kitchen Runner: Kory Younger II, M.D., Ph.D. Procedures Date CPT Code Description Status Comment 12/25/2016 23603 Polysomnography Sleep Completed Staging 4+ Parameters 11/03/2014 95083 Inhalation [place] For Acute Completed Airway Obstruction W/Nebulizer/Inhaler 06/26/2011 Colonoscopy Completed Diverticulosis in sigmoid colon, descending colon, and transverse colon Repeat recommended in 5 years Encounters Type Date Location Provider CPT E/M Dx Office Visit 04/05/2018 3:40p [facility] [place] [address] I10 [place] R41.3 M51.16 Office Visit 02/15/2018 2:40p [facility] [place] [address] M25.561 [place] M54.5 J44.9 M79.645 Office Visit 10/17/2017 9:20a [facility] [place] [address] R10.9 [place] R35.1 Office Visit 10/09/2017 11:40a [facility] [place] [address] J45.21 [place] J20.9 Office Visit 08/25/2017 9:20a [facility] [place] [address] M25.551 [place] Office Visit 06/28/2017 10:30a [facility] Vicky G[place], [address]803 M48.062 [facility] ISABELLE M51.36 Office Visit 06/21/2017 10:30a [facility] Cara Mcgee, 39247 G47.33 [facility] ANDREW JOHN, [place] F41.0 Office Visit 05/23/2017 10:20a [facility] [place] [address] K04.7 [place] G47.00 Office Visit 05/17/2017 10:20a [facility] Francois Villatoro, [address] K08.89 - [place] M.DRay Office Visit 05/04/2017 10:40a [facility] [place] [address] K59.00 - [place] R10.814 Office Visit 04/03/2017 2:10p Neurosurgery Services Inder Ragsdale [address] M48.062 [facility] M.[place] Office Visit 03/09/2017 10:20a [facility] [place] [address] G45.9 - [place] M48.06 Office Visit 02/24/2017 9:40a Neurosurgery Services Inder Ragsdale M.D. 59605 M48.06 [facility] Office Visit 02/22/2017 2:30p [facility] Cara Mcgee, 205[address] G47.33 [facility] ANDREW JOHN, [place] G47.10 F17.210 G89.29 Office Visit 02/08/2017 2:30p [facility] [place] [address] L82.1 L85.3 Office Visit 01/25/2017 3:40p [facility] [place] [address] M51.16 [place] N43.3 R41.3 D48.5 Office Visit 01/11/2017 1:45p [facility] Cara Mcgee, [address] G47.33 [facility] ANDREW JOHN, [place] G47.10 F17.210 J44.9 J45.909 Office Visit 12/15/2016 2:40p [facility] [place] [address] B18.2 [place] N50.811 B35.1 Office Visit 12/12/2016 8:45a [facility] [place] [address] R06.83 [facility] G47.8 G47.10 R41.840 E66.09 Z68.39 Office Visit 12/07/2016 8:40a [facility] [place] [address] M79.604 [place] F32.89 F41.9 B35.1 N50.811 Office Visit 11/10/2016 3:40p [facility] [place] [address] I10 [place] F52.21 J45.20 E78.2 Z11.3 M79.604 Office Visit 03/03/2015 1:20p [facility] [place] [address] 401.1 [place] 302.72 Office Visit 02/09/2015 1:00p [facility] [place] [address] 782.2 [place] Office Visit 01/28/2015 10:20a [facility] [address] 401.1 [place] 782.3 Office Visit 12/04/2014 1:00p [facility] [place] [address] 401.1 [place] 724.2 780.59 789.01 Office Visit 11/03/2014 4:00p [facility] [place] [address] 493.00 [place] 401.1 302.72 493.02 Office Visit 09/17/2014 2:30p [facility] [place] [address] 401.1 [place] 302.72 070.70 782.2 790.21 466.0 Office Visit 08/20/2014 3:00p [facility] [place] [address] 530.81 [place] 401.1 272.2 493.00 302.72 070.70 782.2 Plan of Care Future Appointment(s):06/07/2018 10:20 am - [place] Gan NP at [facility] - [id number]/14/2018 - Regulo Gan, NPI10 Essential (primary) hypertensionComments:IT IS 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 Start by taking 1/2 tablet once daily for a week and continue to check your blood pressure.Follow up:4 weeks
[2018-05-16 15:43] VITALS: BP 176/111
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
== END 2018-05-16 16:40 | disposition home or self-care (01) ==
LOC: UCEAST 15:32
DX: J02.9 Acute pharyngitis, unspecified (principal); J01.90 Acute sinusitis, unspecified; I10 Essential (primary) hypertension; F17.210 Nicotine dependence, cigarettes, uncomplicated; Z88.6 Allergy status to analgesic agent
CPT/HCPCS: 87651; 99212; G0463

== ENCOUNTER 2019-01-15 08:06 | Emergency (ER) | payer OTHER ==
--- OUTSIDE RECORDS SUMMARY | 2019-01-15 08:12 | XMS REPORT | Continuity of Care Document ---
:1955 External Reference #:[id number] Author Name DonrileyMonika Care Team Providers Name Role Phone Joy Hays MD Primary Care Physician Unavailable Payers Date Identification Numbers Payment Provider Subscriber Expires: 2017 Policy Number: [id number] Medicaid Jean Pierre Hurst Group Name: 1 1 [address] PayID: [id number] [place] [address] Policy Number: [id number] [employer] Medicaid Jean Pierre Hurst PayID: [id number] [address] [address] [place] [address] Expires: 2017 Policy Number: [employer]eskalie Hurst [id number] PayID: [id number] [address] [place] [id number] Problems Active Problems Provider Date Benign hypertension Regulo Malik, MANAGER OF INTERNAL Onset: 08/21/2014 Hyperlipidemia Regulo Malik, MANAGER OF INTERNAL Onset: 08/21/2014 Gastroesophageal reflux disease Regulo Malik, MANAGER OF INTERNAL Onset: 08/21/2014 Asthma without status asthmaticus Regulo Malik, MANAGER OF INTERNAL Onset: 08/21/2014 Viral hepatitis C Regulo Malik, MANAGER OF INTERNAL Onset: 08/21/2014 Cannot sustain an erection Regulo Malik, MANAGER OF INTERNAL Onset: 08/21/2014 Impaired fasting glycaemia Regulo Malik, MANAGER OF INTERNAL Onset: 09/17/2014 Obstructive sleep apnea syndrome Cara Mcgee DNP, RN, HOT MET[employer] MIXER OPERATOR-BC Onset: Hypersomnia Cara Mcgee DNP, RN, HOT METAL MIXER OPERATOR-BC Onset: 01/11/2017 Spinal stenosis of lumbar region Inder Ragsdale M.D. Onset: 02/24/2017 Neurogenic claudication Inder Ragsdale M.D. Onset: 04/03/2017 Lumbar spondylolisthesis Inder Ragsdale M.D. Onset: 09/19/2018 Neurogenic claudication Vicky Gage PA-C Onset: 07/25/2018 Family History Date Family Member(s) Observation Comments General No family history reported Father Lung Cancer Mother Hypertension Mother Heart Disease Mother Diabetes Social History Type Date Description Comments Sex Unknown Marital Status Lives With Occupation Disabled Occupation Unemployed Tobacco Use Start: Unknown Light tobacco smoker 1/2 pack/day x 20 (10 or fewer yrs, Onset smoking cigarettes/day) age 8: smoked 2 ppd x 15 years and 1/2 ppd x 30+years est 45 pack year history. 10-15/ day 06/21/17 Smoking Status Reviewed: 01/10/19 Light tobacco smoker 1/2 pack/day x 20 (10 or fewer yrs, Onset smoking cigarettes/day) age 8: smoked 2 ppd x 15 years and 1/2 ppd x 30+years est 45 pack year history. 10-15/ day 06/21/17 ETOH Use Rarely consumes alcohol Tobacco Use Start: Unknown Patient is a current 1/2PPD, started smoker, smokes every smoking at age 8yrs day 10-15/ day 06/21/17 Recreational Drug Use Denies Drug Use Exercise Type/Frequency Does not exercise Allergies, Adverse Reactions, Alerts Active Allergies Reaction Severity Comments Date Aspirin Nausea and Vomiting Moderate 08/20/2014 Hay Fever 01/11/2017 Medications Active Medications SIG Qnty Indications Ordering Date Provider Fluoxetine HCL 1 by mouth every day 30caps F41.9 Regulo Gan NP 01/10/2019 20mg Capsules Lorazepam 1 tablet by mouth up 45tabs F41.9 Regulo Gan NP 01/10/2019 0.5mg to two times daily Tablets Labetalol HCL One tablet twice 60tabs I10 Regulo Gan NP 01/10/2019 100mg daily Tablets Amoxicillin/Clavula take one tablet q12 20tabs J01.90 Regulo Gan NP 01/10 [place] Potassium hours for 10 days 875-125mg Tablets Symbicort inhale 2 puffs by 10.200gm Regulo Gan NP 11/01/2018 mouth twice daily 160-4.5mcg/Act Aerosol Irbesartan Take 1 Tablet By 30tabs I10 Regulo Gan NP 09/21/2018 300mg Mouth Every Day Tablets Amlodipine Besylate take 1 tablet by 30tabs Regulo Gan NP 05/15/2018 mouth every day 10mg Tablets Tramadol HCL 1-2 by mouth every 8 42tabs M51.36 Regulo Gan NP 05/07/2018 50mg hours as needed pain Tablets Sildenafil Citrate 1 tab 30 mins prior 10tabs Regulo Gan NP 04/05/2018 to intercourse 100mg Tablets Miralax dissolve 1 510units K59.00 Regulo Gan NP 05/04/2017 3350NF tablespoonful once Powder daily in liquid as needed Cane/Adjustable/Alu Use while ambulating 1units M79.604 Regulo Gan NP minum/Round Handle Misc Loratadine Take 1 Tablet By 30tabs Regulo Gan NP 11/10/2016 10mg Mouth Every Day Tablets Nebulizer use for albuterol 1units J45.20 Regulo Gan NP 11/03/2014 Device nebulized solution up to 4 times a day. Nebulizer for use 4 times QS J45.20 Regulo Gan NP 11/03/2014 Kit/Tubing/Mouthpie daily as needed ce Kit Albuterol Sulfate 1 vial every 6 hour 100units J45.20 Regulo Gan NP 11/03 as needed. (2.5mg/3ML) 0.083% Nebulizer Naproxen Take 1 Tablet By 60tabs Regulo Gan NP 08/20/2014 500mg Mouth Twice A Day as Tablets Needed With Food Fluticasone Instill 1 [place] Each 16units Regulo Gan NP 08/20/2014 Propionate Nostril Every Day 50mcg/Act Suspension Omeprazole Take One Capsule 30caps K21.9 Regulo Gan NP 08/20/2014 20mg Every Day Capsules DR Jose BARRETO take 2 puffs every 4 8.5units Regulo Gan NP 08/20/2014 hours as needed for 108(90Base) mcg/Act shortness of breath. Aerosol Atorvastatin take 1 tablet every 30tabs Regulo Gan NP 08/20/2014 Calcium day 10mg Tablets History Medications Breo Ellipta inhale 1 puff 28units Regulo Gan 10/31/2018 - 200-25mcg/Inh once a day MANAGER OF INTERNAL 11/01/2018 Aerosol Hydrochlorothiazide Take 1 Tablet 30tabs Regulo Gan, 09/04/2018 - 25mg Every Day MANAGER OF INTERNAL 10/31/2018 Tablets Azithromycin 2 tabs by mouth 6tabs J44.1 Regulo Gan, 05/31/2018 - 250mg Tablets every day x1 day, MANAGER OF INTERNAL 06/07/2018 1 tab by mouth every day x 4 days Guaifenesin-Codeine 5-10ml every 4-6 240ml J44.1 Regulo Gan, 05/31/2018 - hours for cough MANAGER OF INTERNAL 09/18/2018 100-10mg/5ML Syrup Prednisone take 4 tab daily 20tabs J44.1 Regulo Gan, 05/31/2018 - 10mg Tablets x 2 days then 3 MANAGER OF INTERNAL 06/07/2018 tab daily x 2 days, then 2 tab daily for 2 day, and 1 tab for 2 day. Irbesartan Take 1 Tablet By 30tabs I10 Regulo Gan, 05/21/2018 - 150mg Tablets Mouth Every Day MANAGER OF INTERNAL 09/21/2018 Valsartan one tab once 30tabs I10 Regulo Gan, 05/15/2018 - 320mg Tablets daily MANAGER OF INTERNAL 05/21/2018 Arnuity Ellipta Take 1 puff Every 30units Regulo Gan, 04/10/2018 - 100mcg/Act Day MANAGER OF INTERNAL 10/31/2018 Aerosol Valium Take 30 minutes 1tabs M51.16 Regulo Gan, 04/05/2018 - 10mg Tablets prior to MRI MANAGER OF INTERNAL 09/18/2018 Chlorthalidone 1 by mouth every 30tabs I10 Regulo Gan, 04/05/2018 - 25mg Tablets day MANAGER OF INTERNAL 10/31/2018 Flovent HFA 2 puffs twice 12gm Regulo Gan, 10/09/2017 - 220mcg/Act Aerosol daily, rinse MANAGER OF INTERNAL 04/10/2018 mouth after use. Azithromycin 2 tabs by mouth 6tabs J45.21 Regulo Gan, 10/09/2017 - 250mg Tablets every day x1 day, MANAGER OF INTERNAL 10/14/2017 1 tab by mouth every day x 4 days Guaifenesin-Codeine 5-10ml every 4-6 240ml J20.9 Regulo Gan, 10/09/2017 - hours for cough MANAGER OF INTERNAL 10/23/2017 100-10mg/5ML Syrup Flovent HFA 2 puffs twice 12gm [facility], 08/29/2017 - 110mcg/Act Aerosol daily, rinse MANAGER OF INTERNAL 10/09/2017 mouth after use. Lidocaine apply to affected 30gm M25.55 [facility], 08/25/2017 - 4% Cream areas 3 or 4 1 MANAGER OF INTERNAL 09/18/2018 times daily Tramadol HCL 1-2 tablets every 20tabs M25.55 [facility], 08/25/2017 - 50mg Tablets 8 hours as needed 1 MANAGER OF INTERNAL 02/15/2018 for pain. Qvar Redihaler Take 2 10.6units Regulo Malik, 08/25/2017 - 80mcg/Act Inhalations Twice MANAGER OF INTERNAL 02/15/2018 Aerosol Daily Oxycodone-Acetaminophen one tablet every [facility]tabs [facility], 05/23/2017 - 4-6 hours for MANAGER OF INTERNAL 08/24/2017 7.5-325mg Tablets pain Trazodone HCL 1-2 tablets at 30tabs [facility], 05/23/2017 - 50mg Tablets bedtime as MANAGER OF INTERNAL 09/18/2018 needed. Amoxicillin/Clavulanate 1 by mouth twice 14tabs K08.89 Francois Gallardo 2016 - Potassium a day Courtney Villatoro 05/22/2017 875-125mg Tablets Hydroxyzine HCL 1-2 tablets by 60tabs [facility], 05/12/2017 - 25mg Tablets mouth Qhs prn MANAGER OF INTERNAL 05/23/2017 sleep. May also take 1-2 tabs Q 6 hrs for anxiety Clopidogrel Bisulfate 1 tab daily Rodrigo, 03/08/2017 - 75mg Kory Santiago, 10/31/2018 Tablets MD Valium Take 30 minutes 1tabs M51.16 [place] Malik, 01/25/2017 - 10mg Tablets prior to MRI MANAGER OF INTERNAL 02/24/2017 Meloxicam Take 1 Tablet By 30tabs Bur[place] Malik, 01/25/2017 - 15mg Tablets Mouth Every Day MANAGER OF INTERNAL 03/09/2017 With Food as Needed Baclofen Take 1/2 Tablet 30tabs M79.60 [place] Malik, 12/07/2016 - 10mg Tablets By Mouth Every 8 4 MANAGER OF INTERNAL 08/24/2017 Hours as Needed For Muscle Spasm Gabapentin 1 cap PO QHS. 60caps M79.60 Regulo Gan, 11/10/2016 - 300mg Capsules After three days 4 MANAGER OF INTERNAL 12/07/2016 may oncrease to one cap bid. Qvar Take 2 Puffs 8.7units Regulo Gan, 11/10/2016 - 80mcg/Act Aerosol Twice A Day MANAGER OF INTERNAL 08/25/2017 Qvar 2 puffs twice 8.700gm Regulo Malik, 02/11/2015 - 80mcg/Act Aerosol daily MANAGER OF INTERNAL 11/10/2016 Viagra take one tablet 10tabs Regulo Malik, 02/09/2015 - 100mg Tablets at least 30 MANAGER OF INTERNAL 04/05/2018 mintues prior to intercourse. Hydrochlorothiazide Take 1 Tablet 30tabs I10 Regulo Malik, 01/28/2015 - 25mg Every Day MANAGER OF INTERNAL 04/05/2018 Tablets Valium Take 30 minutes 1tabs Regulo Malik, 12/12/2014 - 10mg Tablets prior to MRI MANAGER OF INTERNAL 01/02/2015 Viagra 302.72 Regulo Malik, 11/03/2014 - 50mg Tablets MANAGER OF INTERNAL 11/03/2014 Viagra one tablet 30-60 5tabs Regulo Malik, 11/03/2014 - 50mg Tablets minutes prior to MANAGER OF INTERNAL 02/09/2015 intercourse Flovent Diskus 1 inhalation 1units 493.00 [facility], 11/03/2014 - 100mcg/Blist twice daily. MANAGER OF INTERNAL 02/11/2015 Aerosol Amlodipine 1 tab once daily 30tabs I10 Regulo Malik, 11/03/2014 - Besylate-Valsartan MANAGER OF INTERNAL 05/15/2018 10-320mg Tablets Augmentin 1 tablet by mouth 14tabs 466.0 [facility], 09/17/2014 - 875-125mg Tablets q12 hours for 7 MANAGER OF INTERNAL 09/23/2014 days Amlodipine Take 1 Tablet 30tabs Regulo Malik, 08/20/2014 - Besylate-Valsartan Every Day MANAGER OF INTERNAL 11/03/2014 10-160mg Tablets Cialis one tab 30 30tabs 302.72 Regulo Malik, 08/20/2014 - 20mg Tablets minutes prior to MANAGER OF INTERNAL 11/03/2014 intercourse Lisinopril 1 by mouth every Unknown - 40mg Tablets day 08/20/2014 Hydrochlorothiazide 1 by mouth every Unknown - 25mg day 08/20/2014 Tablets Amlodipine Besylate 1 by mouth every Regulo Malik, - 10mg day MANAGER OF INTERNAL 08/20/2014 Tablets Proair HFA 2 puffs by mouth Unknown - 108(90Base) mcg/Act every 4 hours as 08/20/2014 Aerosol needed Fluticasone Propionate 2 sprays each 16gm [place], - nostril daily as MD Diane 08/20/2014 50mcg/Act Suspension needed Clindamycin HCL [place], - 300mg Capsules RICARDO Wren 08/24/2017 Penicillin V Potassium Unknown - 250mg 08/24/2017 Tablets Hydrocodone-Acetaminophen Unknown - 05/22/2017 5-325mg Tablets Immunizations CPT Code Status Date Vaccine Lot # [id number] Given 03/08/2011 Pneumonia Vaccine [id number] Given 04/15/2009 Afluria Vaccine [id number] Given 12/31/2008 Tetanus And Diptheria (Td) For Adult Use Preservative Free [id number] Given 12/31/2008 Measles Mumps And Rubella MMR Vital Signs Date Vital Result Comment 01/10/2019 11:52am Height 72 inches 6'0" Weight 251.00 lb Heart Rate 88 /min BP Systolic Sitting 161 mmHg Manually 168/120 BP Diastolic Sitting 118 mmHg Manually 168/120 BP Systolic Recheck 160 mmHg BP Diastolic Recheck 108 mmHg Body Temperature 97.7 F O2 % BldC Oximetry 94 % BMI (Body Mass Index) 34.0 kg/m2 10/31/2018 2:01pm Height 72 inches 6'0" Weight 273.25 lb Heart Rate 92 /min BP Systolic 161 mmHg re-check 173/112 BP Diastolic 106 mmHg re-check 173/112 BP Systolic Recheck 164 mmHg BP Diastolic Recheck 102 mmHg Body Temperature 97.2 F O2 % BldC Oximetry 97 % BMI (Body Mass Index) 37.1 kg/m2 09/21/2018 8:47am Height 72 inches 6'0" Weight 263.00 lb Heart Rate 88 /min BP Systolic 159 mmHg BP Diastolic 101 mmHg BP Systolic Recheck 164 mmHg BP Diastolic Recheck 104 mmHg Body Temperature 97.5 F O2 % BldC Oximetry 97 % BMI (Body Mass Index) 35.7 kg/m2 09/19/2018 1:06pm Height 72 inches 6'0" Weight 263.00 lb Heart Rate 97 /min BP Systolic Sitting 158 mmHg BP Diastolic Sitting 98 mmHg Respiratory Rate 18 /min Pain Level 9 BMI (Body Mass Index) 35.7 kg/m2 08/24/2018 10:52am Height 72 inches 6'0" Weight 263.00 lb BP Systolic Sitting 160 mmHg BP Diastolic Sitting 100 mmHg Pain Level 6 BMI (Body Mass Index) 35.7 kg/m2 07/25/2018 1:16pm Height 72 inches 6'0" Weight 263.00 lb BP Systolic Sitting 140 mmHg BP Diastolic Sitting 80 mmHg Pain Level 6 BMI (Body Mass Index) 35.7 kg/m2 05/31/2018 2:28pm Height 72 inches 6'0" Weight 263.00 lb Heart Rate 108 /min BP Systolic Sitting 153 mmHg BP Diastolic Sitting 97 mmHg Body Temperature 97.9 F O2 % BldC Oximetry 94 % BMI (Body Mass Index) 35.7 kg/m2 05/09/2018 1:48pm Height 72 inches 6'0" Weight 263.00 lb Heart Rate 83 /min BP Systolic 169 mmHg BP Diastolic 106 mmHg BP Systolic Recheck 162 mmHg BP Diastolic Recheck 108 mmHg O2 % BldC Oximetry 97 % BMI (Body Mass Index) 35.7 kg/m2 05/07/2018 9:55am Height 72 inches 6'0" Weight 263.00 lb Heart Rate 88 /min BP Systolic Sitting 170 mmHg Lue lg cuff BP Diastolic Sitting 118 mmHg Lue lg cuff Pain Level 7 BMI (Body Mass Index) 35.7 kg/m2 04/05/2018 3:39pm Height 72 inches 6'0" Weight 263.00 lb Heart Rate 86 /min BP Systolic 178 mmHg BP Diastolic 114 mmHg BP Systolic Recheck 160 mmHg BP Diastolic Recheck 100 mmHg Body Temperature 97.6 F O2 % BldC Oximetry 100 % BMI (Body Mass Index) 35.7 kg/m2 02/15/2018 2:33pm Height 72 inches 6'0" Weight 263.00 lb Heart Rate 94 /min BP Systolic Sitting 153 mmHg BP Diastolic Sitting 101 mmHg O2 % BldC Oximetry 97 % BMI (Body Mass Index) 35.7 kg/m2 10/17/2017 9:00am Weight 282.25 lb Heart Rate 96 /min BP Systolic 136 mmHg BP Diastolic 72 mmHg Body Temperature 97.2 F O2 % BldC Oximetry 95 % 10/09/2017 11:09am Weight 278.00 lb Heart Rate 94 /min BP Systolic Sitting 146 mmHg BP Diastolic Sitting 98 mmHg Body Temperature 97.6 F O2 % BldC Oximetry 90 % Recheck 95% 08/25/2017 8:41am Weight 285.25 lb Heart Rate 92 /min BP Systolic Sitting 132 mmHg BP Diastolic Sitting 92 mmHg O2 % BldC Oximetry 98 % 06/28/2017 9:40am Height 72 inches 6'0" Weight 297.00 lb Heart Rate 90 /min BP Systolic Sitting 150 mmHg BP Diastolic Sitting 88 mmHg Pain Level 4 BMI (Body Mass Index) 40.3 kg/m2 06/21/2017 10:06am Height 72 inches 6'0" Weight 297.38 lb with shoes Heart Rate 100 /min BP Systolic Sitting 134 mmHg Rue large cuff BP Diastolic Sitting 100 mmHg Rue large cuff Respiratory Rate 18 /min O2 % BldC Oximetry 97 % On Ra BMI (Body Mass Index) 40.3 kg/m2 05/23/2017 10:11am Height 72 inches 6'0" Weight 302.00 lb Heart Rate 89 /min BP Systolic Sitting 134 mmHg BP Diastolic Sitting 92 mmHg Body Temperature 97.3 F O2 % BldC Oximetry 96 % BMI (Body Mass Index) 41.0 kg/m2 05/17/2017 10:35am Height 72 inches 6'0" Weight 298.00 lb Heart Rate 102 /min BP Systolic Sitting 132 mmHg BP Diastolic Sitting 96 mmHg Body Temperature 97.0 F O2 % BldC Oximetry 97 % BMI (Body Mass Index) 40.4 kg/m2 05/04/2017 10:25am Weight 296.75 lb Heart Rate 88 /min BP Systolic 140 mmHg BP Diastolic 88 mmHg O2 % BldC Oximetry 99 % 04/03/2017 1:59pm Height 72 inches 6'0" Weight 303.00 lb Heart Rate 88 /min BP Systolic Sitting 140 mmHg BP Diastolic Sitting 90 mmHg Pain Level 8 BMI (Body Mass Index) 41.1 kg/m2 03/09/2017 10:29am Weight 303.00 lb Heart Rate 88 /min BP Systolic Sitting 142 mmHg BP Diastolic Sitting 90 mmHg Pain Level 7 Lower back 02/24/2017 9:57am Height 72 inches 6'0" Weight 300.00 lb Heart Rate 82 /min BP Systolic Sitting 150 mmHg BP Diastolic Sitting 82 mmHg Pain Level 8 BMI (Body Mass Index) 40.7 kg/m2 02/22/2017 2:52pm Height 72 inches 6'0" Weight 300.00 lb Heart Rate 84 /min BP Systolic Sitting 156 mmHg BP Diastolic Sitting 110 mmHg Respiratory Rate 14 /min O2 % BldC Oximetry 94 % BMI (Body Mass Index) 40.7 kg/m2 01/25/2017 3:50pm Heart Rate 78 /min BP Systolic Sitting 134 mmHg BP Diastolic Sitting 96 mmHg O2 % BldC Oximetry 97 % 01/11/2017 3:01pm Height 72 inches 6'0" Weight 300.00 lb Heart Rate 76 /min BP Systolic Sitting 160 mmHg BP Diastolic Sitting 102 mmHg Respiratory Rate 14 /min O2 % BldC Oximetry 98 % BMI (Body Mass Index) 40.7 kg/m2 12/15/2016 2:50pm Heart Rate 86 /min BP Systolic Sitting 128 mmHg BP Diastolic Sitting 86 mmHg O2 % BldC Oximetry 95 % 12/12/2016 9:17am Height 72 inches 6'0" Weight 294.00 lb Heart Rate 90 /min BP Systolic Sitting 136 mmHg BP Diastolic Sitting 88 mmHg Respiratory Rate 20 /min O2 % BldC Oximetry 95 % room air BMI (Body Mass Index) 39.9 kg/m2 Neck Circumference in inches 18.5 12/07/2016 8:53am Heart Rate 77 /min BP Systolic Sitting 142 mmHg BP Diastolic Sitting 92 mmHg O2 % BldC Oximetry 95 % 11/10/2016 3:29pm Weight 285.75 lb Heart Rate 93 /min BP Systolic 126 mmHg BP Diastolic 66 mmHg Body Temperature 97.3 F O2 % BldC Oximetry 95 % 03/03/2015 1:35pm Weight 265.00 lb Heart Rate 85 /min BP Systolic Sitting 142 mmHg BP Diastolic Sitting 94 mmHg BP Systolic Recheck 138 mmHg BP Diastolic Recheck 88 mmHg 02/09/2015 12:52pm Height 71.5 inches 5'11.50" Weight 266.00 lb Heart Rate 94 /min BP Systolic Sitting 138 mmHg BP Diastolic Sitting 94 mmHg Body Temperature 97.9 F O2 % BldC Oximetry 98 % BMI (Body Mass Index) 36.6 kg/m2 01/28/2015 10:16am Weight 264.50 lb Heart Rate 103 /min BP Systolic Sitting 156 mmHg BP Diastolic Sitting 103 mmHg BP Systolic Recheck 152 mmHg BP Diastolic Recheck 96 mmHg 12/04/2014 12:54pm Height 71 inches 5'11" Weight 268.00 lb Heart Rate 102 /min BP Systolic 143 mmHg BP Diastolic 88 mmHg Body Temperature 98.6 F O2 % BldC Oximetry 95 % BMI (Body Mass Index) 37.4 kg/m2 11/03/2014 4:21pm Weight 267.00 lb Heart Rate 95 /min BP Systolic Sitting 149 mmHg BP Diastolic Sitting 93 mmHg Body Temperature 97.4 F O2 % BldC Oximetry 96 % Peak Flow Meter 500, 50 09/17/2014 2:15pm Height 71 inches 5'11" Weight 271.00 lb Heart Rate 93 /min BP Systolic 143 mmHg 140/90 manual recheck BP Diastolic 93 mmHg 140/90 manual recheck Body Temperature 98.0 F BMI (Body Mass Index) 37.8 kg/m2 08/20/2014 2:52pm Height 71 inches 5'11" Weight 277.00 lb Heart Rate 85 /min BP Systolic 145 mmHg BP Diastolic 90 mmHg Body Temperature 98.3 F BMI (Body Mass Index) 38.6 kg/m2 Results Test Date Facility Test Result H/L Range Note Laboratory test 11/01/2018 [facility] PSA Screening 2.960 ng/mL N 0-4.000 1 finding [address] [place] [address] [phone] Urinalysis 11/01/2018 [facility] Urine Color Yellow Profile [address] [place] [address] [phone] Urine Appearance Clear Urine Specific [place] 1.013 N 1.010-1.030 Urine pH 7.0 N 5-9 Urine Urobilinogen Negative Negative Urine Ketones Negative Negative Urine Protein Negative Negative Urine Leukocytes Negative Negative Urine Blood Negative Negative Urine Nitrite Negative Negative Urine Bilirubin Negative Negative Urine Glucose Negative Negative GC/Chlamydia 11/01/2018 [facility] Chlamydia Negative Negative Amplified Rna [address] [facility] [place] [address] [phone] Neisseria gonorrhoeae (GC) Rna Negative Negative Laboratory test 05/31/2018 [facility] Rapid Group A negative finding Strep Laboratory test 05/16/2018 [facility] Rapid Strep Negative Negative [address] [place] [address] [phone] CBC Auto Diff 05/03/2018 [facility] White Blood 6.0 10^3/uL N 3.5-10.[address] [place] [address] [phone] Red Blood Count 4.16 10^6/uL N 4.00-5.40 Hemoglobin 13.5 g/dL Low 14.0-18.0 Hematocrit 40 % Low 42-52 Mean Corpuscular Volume 97 fL High 80-94 Mean Corpuscular Hemoglobin 32 pg High 27-31 Mean Corpuscular HGB Conc 34 g/dL N 31-36 Red Cell Distribution Width 17 % High 10.5-15 Platelet Count 130 10^3/uL Low 150-450 3 Mean Platelet Volume 10.4 fL N 7.4-10.4 Large Platelets Present Abs Neutrophils 3.3 10^3/uL N 1.5-7.7 Abs Lymphocytes 2.1 10^3/uL N 1.0-4.8 Abs Monocytes 0.5 10^3/uL N 0-0.8 Abs Eosinophils 0.1 10^3/uL N 0-0.6 Abs Basophils 0 10^3/uL N 0-0.2 Abs Nucleated RBC 0 10^3/uL Granulocyte % 55.6 % N 38-83 Lymphocyte % 34.4 % N 25-47 Monocyte % 7.8 % High 0-7 Eosinophil % 1.5 % N 0-6 Basophil % 0.7 % N 0-2 Nucleated Red Blood Cells % 0.1 Comp Metabolic Panel 05/03/2018 [facility] Sodium 138 mmol/L N 135-[address] [place] [address] [phone] Potassium 3.4 mmol/L Low 3.5-5.0 Chloride 102 mmol/L N 101-111 Co2 Carbon Dioxide 28 mmol/L N 22-32 Anion Gap 8 mmol/L N 2-11 Glucose 103 mg/dL High 70-100 Blood Urea Nitrogen 11 mg/dL N 6-24 Creatinine 0.73 mg/dL N 0.67-1.17 BUN/Creatinine Ratio 15.1 N 8-20 Calcium 9.2 mg/dL N 8.6-10.3 Total Protein 7.0 g/dL N 6.4-8.9 Albumin 3.7 g/dL N 3.2-5.2 Globulin 3.3 g/dL N 2-4 Albumin/Globulin Ratio 1.1 N 1-3 Total Bilirubin 0.30 mg/dL N 0.2-1.0 Alkaline Phosphatase 60 U/L N 34-104 Alt 31 U/L N 7-52 Ast 27 U/L N 13-39 Egfr Non- 108.9 >60 Egfr 131.7 >60 4 Laboratory test 05/03/2018 [facility] TSH (Thyroid 1.25 mcIU/mL N 0.34-5.[address] Stim Horm) [place] [address] [phone] Vitamin B12 281 pg/mL N 180-914 5 Cell Morphology 05/03/2018 [facility] Hypochromasia 1+ [address] [place] [address] [phone] Anisocytosis 1+ CBC Auto Diff 05/19/2017 [facility] White Blood 8.9 10^3/uL N 3.5-10.[address] [place] [address] [phone] Red Blood Count 3.88 10^6/uL Low 4.0-5.4 Hemoglobin 10.9 g/dL Low 14.0-18.0 Hematocrit 34 % Low 42-52 Mean Corpuscular Volume 87 fL N 80-94 Mean Corpuscular Hemoglobin 28 pg N 27-31 Mean Corpuscular HGB Conc 33 g/dL N 31-36 Red Cell Distribution Width 19 % High 10.5-15 Platelet Count 206 10^3/uL N 150-450 Mean Platelet Volume 9 um3 N 7.4-10.4 Abs Neutrophils 6.2 10^3/uL N 1.5-7.7 Abs Lymphocytes 1.7 10^3/uL N 1.0-4.8 Abs Monocytes 0.7 10^3/uL N 0-0.8 Abs Eosinophils 0.1 10^3/uL N 0-0.6 Abs Basophils 0.1 10^3/uL N 0-0.2 Abs Nucleated RBC 0.01 10^3/uL Granulocyte % 69.4 % N 38-83 Lymphocyte % 19.6 % Low 25-47 Monocyte % 8.3 % N 1-9 Eosinophil % 1.6 % N 0-6 Basophil % 1.1 % N 0-2 Nucleated Red Blood Cells % 0.1 Laboratory test 05/19/2017 [facility] Lactic Acid 0.7 mmol/L N 0.5-2.0 [address] [place] [address] [phone] Comp Metabolic 05/19/2017 [facility] Sodium 135 mmol/L N 133- [address] [place] [address] [phone] Potassium 3.7 mmol/L N 3.5-5.0 Chloride 104 mmol/L N 101-111 Co2 Carbon Dioxide 25 mmol/L N 22-32 Anion Gap 6 mmol/L N 2-11 Glucose 103 mg/dL High 70-100 Blood Urea Nitrogen 19 mg/dL N 6-24 Creatinine 0.81 mg/dL N 0.67-1.17 BUN/Creatinine Ratio 23.5 High 8-20 Calcium 9.1 mg/dL N 8.6-10.3 Total Protein 7.5 g/dL N 6.4-8.9 Albumin 3.7 g/dL N 3.2-5.2 Globulin 3.8 g/dL N 2-4 Albumin/Globulin Ratio 1.0 N 1-3 Total Bilirubin 0.60 mg/dL N 0.2-1.0 Alkaline Phosphatase 57 U/L N 34-104 Alt 15 U/L N 7-52 Ast 15 U/L N 13-39 Egfr Non- 96.9 >60 Egfr 124.6 >60 7 CBC Auto Diff 05/04/2017 [facility] White Blood 6.8 10^3/uL N 3.5-10.[address] [place] [address] [phone] Red Blood Count 4.22 10^6/uL N 4.0-5.4 Hemoglobin 11.7 g/dL Low 14.0-18.0 Hematocrit 37 % Low 42-52 Mean Corpuscular Volume 87 fL N 80-94 Mean Corpuscular Hemoglobin 28 pg N 27-31 Mean Corpuscular HGB Conc 32 g/dL N 31-36 Red Cell Distribution Width 19 % High 10.5-15 Platelet Count 200 10^3/uL N 150-450 Mean Platelet Volume 9 um3 N 7.4-10.4 Abs Neutrophils 4.1 10^3/uL N 1.5-7.7 Abs Lymphocytes 1.8 10^3/uL N 1.0-4.8 Abs Monocytes 0.5 10^3/uL N 0-0.8 Abs Eosinophils 0.2 10^3/uL N 0-0.6 Abs Basophils 0.1 10^3/uL N 0-0.2 Abs Nucleated RBC 0 10^3/uL Granulocyte % 61.0 % N 38-83 Lymphocyte % 27.3 % N 25-47 Monocyte % 7.8 % N 1-9 Eosinophil % 3.0 % N 0-6 Basophil % 0.9 % N 0-2 Nucleated Red Blood Cells % 0 Comp Metabolic Panel 05/04/2017 [facility] Sodium 139 mmol/L N 133-145 [address] [place] [address] [phone] Potassium 3.6 mmol/L N 3.5-5.0 Chloride 102 mmol/L N 101-111 Co2 Carbon Dioxide 30 mmol/L N 22-32 Anion Gap 7 mmol/L N 2-11 Glucose 113 mg/dL High 70-100 Blood Urea Nitrogen 13 mg/dL N 6-24 Creatinine 0.87 mg/dL N 0.67-1.17 BUN/Creatinine Ratio 14.9 N 8-20 Calcium 9.1 mg/dL N 8.6-10.3 Total Protein 7.2 g/dL N 6.4-8.9 Albumin 3.8 g/dL N 3.2-5.2 Globulin 3.4 g/dL N 2-4 Albumin/Globulin Ratio 1.1 N 1-3 Total Bilirubin 0.50 mg/dL N 0.2-1.0 Alkaline Phosphatase 61 U/L N 34-104 Alt 18 U/L N 7-52 Ast 18 U/L N 13-39 Egfr Non- 89.2 >60 Egfr 114.7 >60 8 Laboratory test 03/07/2017 [facility] Point of 147 mg/dL High 70-[address] [place] [address] [phone] Laboratory test 03/07/2017 [facility] Lipase 25 U/L N 11.0- 82.[address] [place] [address] [phone] C Reactive Protein 25.62 mg/L High < 5.00 10 Troponin-I (TnI) 0.00 ng/mL N <0.04 Magnesium TNP mg/dL N 1.9-2.7 TSH (Thyroid Stim Horm) 3.09 mcIU/mL N 0.34-5.60 Laboratory test 03/07/2017 [facility] Magnesium 2.3 mg/dL N 1.9-2.[address] [place] [address] [phone] Potassium Redraw 3.6 mmol/L N 3.5-5.0 Ast Redraw 20 U/L N 13-39 CBC Auto Diff 03/07/2017 [facility] White Blood 8.7 10^3/uL N 3.5-10.[address] [place] [address] [phone] Red Blood Count 4.18 10^6/uL N 4.0-5.4 Hemoglobin 11.6 g/dL Low 14.0-18.0 Hematocrit 36 % Low 42-52 Mean Corpuscular Volume 86 fL N 80-94 Mean Corpuscular Hemoglobin 28 pg N 27-31 Mean Corpuscular HGB Conc 32 g/dL N 31-36 Red Cell Distribution Width 20 % High 10.5-15 Platelet Count 195 10^3/uL N 150-450 Mean Platelet Volume 11 um3 High 7.4-10.4 Abs Neutrophils 5.8 10^3/uL N 1.5-7.7 Abs Lymphocytes 1.9 10^3/uL N 1.0-4.8 Abs Monocytes 0.7 10^3/uL N 0-0.8 Abs Eosinophils 0.2 10^3/uL N 0-0.6 Abs Basophils 0.1 10^3/uL N 0-0.2 Abs Nucleated RBC 0.01 10^3/uL N Granulocyte % 66.5 % N 38-83 Lymphocyte % 22.2 % Low 25-47 Monocyte % 8.3 % N 1-9 Eosinophil % 2.2 % N 0-6 Basophil % 0.8 % N 0-2 Nucleated Red Blood Cells % 0.1 N Laboratory test 03/07/2017 [facility] Lactic Acid 1.8 mmol/L N 0.5-2.0 [address] [place] [address] [phone] Inr/Protime 03/07/2017 [facility] Inr 0.90 N 0.89-1.[address] [place] [address] [phone] Comp Metabolic 03/07/2017 [facility] Sodium 136 mmol/L N 133- [address] [place] [address] [phone] Chloride 103 mmol/L N 101-111 Co2 Carbon Dioxide 26 mmol/L N 22-32 Glucose 123 mg/dL High 70-100 Blood Urea Nitrogen 21 mg/dL N 6-24 Creatinine 0.86 mg/dL N 0.67-1.17 BUN/Creatinine Ratio 24.4 High 8-20 Calcium 9.0 mg/dL N 8.6-10.3 12 Total Protein 7.4 g/dL N 6.4-8.9 Albumin 3.9 g/dL N 3.2-5.2 Globulin 3.5 g/dL N 2-4 Albumin/Globulin Ratio 1.1 N 1-3 Total Bilirubin 0.40 mg/dL N 0.2-1.0 Alkaline Phosphatase 62 U/L N 34-104 Alt 17 U/L N 7-52 Egfr Non- 90.4 N >60 Egfr 116.3 N >60 13 Potassium TNP mmol/L N 3.5-5.0 14 Anion Gap 7 mmol/L N 2-11 Ast TNP U/L N 13-39 Laboratory test 03/07/2017 [facility] Partial 29.3 seconds N 26.0-36.[address] [place] [address] PTT [phone] Iron & Iron 03/06/2017 [facility] Iron 49 g/dL Low 50-[address] [place] [address] [phone] Unsaturated Iron Binding 434 g/dL N Total Iron Binding Capacity 483 g/dL High 250-450 % Iron Saturation 10 % Low 15-55 Laboratory test 03/06/2017 [facility] Ferritin 15.3 ng/mL Low 24-[address] [place] [address] [phone] Laboratory test 02/09/2017 [facility] TSH (Thyroid 2.12 N 0.34 -5.[address] Stim Horm) mcIU/[place] [address] [phone] Vitamin B12 301 pg/mL N 180-914 15 CBC Auto Diff 02/09/2017 [facility] White Blood 6.5 10^3/uL N 3.5-10.[address] [place] [address] [phone] Red Blood Count 4.17 10^6/uL N 4.0-5.4 Hemoglobin 11.5 g/dL Low 14.0-18.0 Hematocrit 37 % Low 42-52 Mean Corpuscular Volume 88 fL N 80-94 Mean Corpuscular Hemoglobin 28 pg N 27-31 Mean Corpuscular HGB Conc 32 g/dL N 31-36 Red Cell Distribution Width 20 % High 10.5-15 Platelet Count 197 10^3/uL N 150-450 Mean Platelet Volume 10 um3 N 7.4-10.4 Abs Neutrophils 3.7 10^3/uL N 1.5-7.7 Abs Lymphocytes 1.9 10^3/uL N 1.0-4.8 Abs Monocytes 0.6 10^3/uL N 0-0.8 Abs Eosinophils 0.2 10^3/uL N 0-0.6 Abs Basophils 0.1 10^3/uL N 0-0.2 Abs Nucleated RBC 0.01 10^3/uL N Granulocyte % 57.0 % N 38-83 Lymphocyte % 29.6 % N 25-47 Monocyte % 8.7 % N 1-9 Eosinophil % 3.8 % N 0-6 Basophil % 0.9 % N 0-2 Nucleated Red Blood Cells % 0.1 N Laboratory 12/15/2016 [facility] Hepatitis C Undetected N Undetected 16 test finding [address] Rna Quant IU/[place] [address] [phone] Laboratory 12/07/2016 [facility] Hepatitis C High Abnormal Nonreactive 17 test finding [address] [place] [address] [phone] Magnesium 2.1 mg/dL N 1.9-2.7 Lipid Profile 12/07/2016 [facility] Triglycerides 212 mg/dL N 18 (Trig/Chol/HDL) [address] [place] [address] [phone] Cholesterol 173 mg/dL N 19 HDL Cholesterol 36.2 mg/dL N 20 LDL Cholesterol 94 mg/dL N 21 Comp Metabolic Panel 12/07/2016 [facility] Sodium 137 mmol/L N 133-[address] [place] [address] [phone] Potassium 3.8 mmol/L N 3.5-5.0 Chloride 103 mmol/L N 101-111 Co2 Carbon Dioxide 28 mmol/L N 22-32 Anion Gap 6 mmol/L N 2-11 Glucose 107 mg/dL High 70-100 Blood Urea Nitrogen 11 mg/dL N 6-24 Creatinine 0.73 mg/dL N 0.67-1.17 BUN/Creatinine Ratio 15.1 N 8-20 Calcium 8.7 mg/dL N 8.6-10.3 Total Protein 7.0 g/dL N 6.4-8.9 Albumin 3.8 g/dL N 3.2-5.2 Globulin 3.2 g/dL N 2-4 Albumin/Globulin Ratio 1.2 N 1-3 Total Bilirubin 0.40 mg/dL N 0.2-1.0 Alkaline Phosphatase 77 U/L N 34-104 Alt 21 U/L N 7-52 Ast 23 U/L N 13-39 Egfr Non- 109.6 N >60 Egfr 140.9 N >60 22 Order 11/03/2014 [facility] In-House Nebulizer [id number] exp Treatment 02/07 albe Laboratory 09/11/2014 [facility] Hepatitis C Rna Undetected N Undetected 23, test finding [address] Quantitative IU/mL 24 [place] [address] [phone] Lipid Profile 09/11/2014 [facility] Triglycerides 159 mg/dL N 25 (Trig/Chol/HDL [address] ) [place] [address] [phone] Cholesterol 127 mg/dL N 26 HDL Cholesterol 39.2 mg/dL N 27 LDL Cholesterol 56 mg/dL N 28 Comp Metabolic Panel 09/11/2014 [facility] Sodium 140 mmol/L N 133-[address] [place] [address] [phone] Potassium 3.5 mmol/L N 3.5-5.0 Chloride 104 mmol/L N 101-111 Co2 Carbon Dioxide 31 mmol/L N 22-32 Anion Gap 5 mmol/L N 2-11 Glucose 112 mg/dL High 70-100 Blood Urea Nitrogen 12 mg/dL N 6-24 Creatinine 0.81 mg/dL N 0.67-1.17 BUN/Creatinine Ratio 14.8 N 8-20 Calcium 8.9 mg/dL N 8.6-10.3 Total Protein 6.7 g/dL N 6.4-8.9 Albumin 3.7 g/dL N 3.2-5.2 Globulin 3.0 g/dL N 2-4 Albumin/Globulin Ratio 1.2 N 1-3 Total Bilirubin 0.50 mg/dL N 0.2-1.0 Alkaline Phosphatase 71 U/L N 34-104 Alt 19 U/L N 7-52 Ast 23 U/L N 13-39 Egfr Non- 97.9 N >60 Egfr 125.9 N >60 29 1 Serum levels of PSA measured using the [employer] DXI Hybritech immunoassay should not be interpreted as absolute evidence of the presence or absence of disease. The PSA value should be used in conjunction with other pertinent clinical diagnostic procedures. The values obtained with different assay methods or kits cannot be used interchangeably. 2 Farm Machine Tender: [id number] 3 Platelet count confirmed by estimate 05/03/18 4 Because ethnic data is not always readily [...] 15-29 5 Kidney failure <15 (or dialysis) 5 Normal Range 180 to 914 Indeterminate Range 145 to 180 Deficient Range <145 6 [place] Severe Sepsis and Septic Shock Management Bundle Measure requires all lactic acids initially measuring >2.0 mmol/L be repeated. 7 Because ethnic data is not always readily [...] 15-29 5 Kidney failure <15 (or dialysis) 8 Because ethnic data is not always readily [...] 15-29 5 Kidney failure <15 (or dialysis) 9 Farm Machine Tender: [id number] 10 Acute inflammation: >10.00 11 [facility] Severe Sepsis and Septic Shock Management Bundle Measure requires all lactic acids initially measuring >2.0 mmol/L be repeated. 12 Specimen Lipemic. Result may not be valid. 13 Because ethnic data is not always readily [...] 15-29 5 Kidney failure <15 (or dialysis) 14 Specimen hemolyzed, spoke to Christine for recollect. 15 Normal Range 180 to 914 Indeterminate Range 145 to 180 Deficient Range <145 16 Result in log IU/mL is Undetected. ADDITIONAL INFORMATION The quantification range of this assay is 15 to 100,000,000 IU/mL (1.18 log to 8.00 log IU/mL). Testing was performed by the HUMA AmpliPrep/HUMA TaqMan HCV Test, version 2.0 ([employer] Test Performed by: [place] [address] 17 High reactive sample are considered positive for Hepatitis C 18 Desirable <150 Borderline high 150-199 High 200-499 Very High >500 19 Desirable <200 Borderline high 200-239 High >239 20 Low <40 Desirable: 40-60 High: >60 21 Desirable: <100 mg/dL Near Optimal: 100-129 mg/dL Borderline High: 130-159 mg/dL High: 160-189 mg/dL Very High: >189 mg/dL 22 Because ethnic data is not always [...] 5 Kidney failure <15 (or dialysis) 23 FASTING 24 Result in log IU/mL is Undetected. ADDITIONAL INFORMATION The quantification range of this assay is 15 to 100,000,000 IU/mL (1.18 log to 8.00 log IU/mL). Testing was performed by the HUMA AmpliPrep/HUMA TaqMan HCV Test, version 2.0 ([employer] Test Performed by: [place] [address] Assistant Pastry Chef: Kory Younger II, M.D., Ph.D. 25 Desirable <150 Borderline high 150-199 High 200-499 Very High >500 26 Desirable <200 Borderline high 200-239 High >239 27 Low <40 Desirable: 40-60 High: >60 28 Desirable: <100 mg/dL Near Optimal: 100-129 mg/dL Borderline High: 130-159 mg/dL High: 160-189 mg/dL Very High: >189 mg/dL 29 Because ethnic data is not always readily [...] 15-29 5 Kidney failure <15 (or dialysis) Procedures Date Code Description Status 01/04/2019 68105 Diffusing Capacity Completed 01/04/2019 14328 Plethysmography Determination Lung Volumes & Per Airway Completed Resist 01/04/2019 44451 Pulmonary Function><Bronchodil Completed 12/25/2016 62527 Polysomnography Sleep Staging 4+ Parameters Completed 11/03/2014 53072 Inhalation [place] For Acute Airway Obstruction Completed W/Nebulizer/Inhaler 06/26/2011 [id number] Colonoscopy Completed Encounters Type Date Location Provider Dx Diagnosis Office Visit 10/31/2018 [facility] Internal Regulojimmy Gan, MANAGER OF INTERNAL I10 Essential (primary ) 1:40p Medicine - [facility] hypertension R35.0 Frequency of micturition R05 Cough R06.02 Shortness of breath Office Visit 09/21/2018 8:40a [facility] Internal Regulojimmy Gan M48.062 Spinal stenosis, Medicine - MANAGER OF INTERNAL lumbar region with [facility] neurogenic claudication I10 Essential (primary) hypertension Office Visit 09/19/2018 Neurosurgery Inder Ragsdale M48.062 Spinal stenosis, 1:10p Services Of [facility] M.DRay lumbar region with neurogenic claudication M43.16 Spondylolisthesis, lumbar region Office Visit 08/24/2018 10:30a Spine Navigator Vicky Gage M48.062 Spinal stenosis, Of [facility] PA-C lumbar region with neurogenic claudication M51.36 Other intervertebral disc degeneration, lumbar region M43.16 Spondylolisthesis, lumbar region M51.26 Other intervertebral disc displacement, lumbar region Office Visit 07/25/2018 Neurosurgery Vicky Gage M48.062 Spinal stenosis, 1:30p Services Of [facility] PA lumbar region with neurogenic claudication M51.36 Other intervertebral disc degeneration, lumbar region Office Visit 05/31/2018 2:20p [facility] Internal Regulojimmy Gan, J02.9 Acute pharyngitis, Medicine - [facility] MANAGER OF INTERNAL unspecified F17.210 Nicotine dependence, cigarettes, uncomplicated J44.1 Chronic obstructive pulmonary disease w (acute) exacerbation R05 Cough R06.02 Shortness of breath Office Visit 05/09/2018 1:40p [facility] Internal Regulo Malik, I10 Essential Medicine - [facility] MANAGER OF INTERNAL (primary) hypertension Office Visit 05/07/2018 10:00a Neurosurgery Vicky M48.062 Spinal stenosis, Services Of [facility] Too [facility] lumbar region with neurogenic claudication M51.36 Other intervertebral disc degeneration, lumbar region Office Visit 04/05/2018 3:40p [facility] Internal Regulo Malik, I10 Essential ( primary) Medicine - [facility] MANAGER OF INTERNAL hypertension R41.3 Other amnesia M51.16 Intervertebral disc disorders w radiculopathy, lumbar region Office Visit 02/15/2018 2:40p [facility] Internal Regulo Gan, MANAGER OF INTERNAL M25.561 Pain in right Medicine - [facility] knee M54.5 Low back pain J44.9 Chronic obstructive pulmonary disease, unspecified M79.645 Pain in left finger(s) Office Visit 10/17/2017 9:20a [facility] Internal Regulo Malik, R10.9 Unspecified Medicine - [facility] MANAGER OF INTERNAL abdominal pain R35.1 Nocturia Office Visit 10/09/2017 11:40a [facility] Internal Regulo Malik, J45.21 Mild intermittent Medicine - [facility] MANAGER OF INTERNAL asthma with (acute) exacerbation J20.9 Acute bronchitis, unspecified Office Visit 08/25/2017 9:20a [facility] Internal Regulo Gan, M25.551 Pain in right hip Medicine - [facility] MANAGER OF INTERNAL Office Visit 06/28/2017 10:30a Neurosurgery Vicky M48.062 Spinal stenosis, Services Of [facility] ISABELLE Gage lumbar region with neurogenic claudication M51.36 Other intervertebral disc degeneration, lumbar region Office Visit 06/21/2017 Pulmonology And Cara G47.33 Obstructive sleep 10:30a Sleep Services Of DORA Mcgee, RN, apnea (adult) [facility] HOT METAL MIXER OPERATOR-BC (pediatric) F41.0 Panic disorder [episodic paroxysmal anxiety] Office Visit 05/23/2017 10:20a [facility] Internal Regulo Gan, K04.7 Periapical abscess [facility] MANAGER OF INTERNAL without sinus G47.00 Insomnia, unspecified Office Visit 05/17/2017 Irma [facility] Internal Francois Gallardo K08.89 Other specified 10:20a Medicine-Marla Villatoro M.D. disorders of teeth and supporting structures Office Visit 05/04/2017 [facility] Internal Medicine - Regulo Gan, K59.00 Constipation, 10:40a [facility] MANAGER OF INTERNAL unspecified R10.814 Left lower quadrant abdominal tenderness Office Visit 04/03/2017 Neurosurgery Inder Ragsdale M48.062 Spinal stenosis, 2:10p Services Of Jemima Valdez lumbar region with neurogenic claudication Office Visit 03/09/2017 [facility] Internal Regulo Gan NP G45.9 Transient 10:[facility] ischemic attack, unspecified M48.06 Spinal stenosis, lumbar region Office Visit 02/24/2017 Neurosurgery Inder Ragsdale M48.06 Spinal stenosis , 9:40a Services Of [facility] Courtney lumbar region Office Visit 02/22/2017 Pulmonology And Cara G47.33 Obstructive sleep 2:30p Sleep Services Of DORA Mcgee, RN, apnea (adult) [facility] (pediatric) G47.10 Hypersomnia, unspecified F17.210 Nicotine dependence, cigarettes, uncomplicated G89.29 Other chronic pain Office Visit 02/08/2017 2:30p [facility] Dermatology Srinivasa Calloway, L82.1 Other seborrheic MD keratosis L85.3 Xerosis cutis Office Visit 01/25/2017 3:40p [facility] Internal Regulo Gan, M51.16 Intervertebral disc Medicine - MANAGER OF INTERNAL disorders w [facility] radiculopathy, lumbar region N43.3 Hydrocele, unspecified R41.3 Other amnesia D48.5 Neoplasm of uncertain behavior of skin Office Visit 01/11/2017 Pulmonology And Cara G47.33 Obstructive sleep 1:45p Sleep Services Of DORA Mcgee RN, apnea (adult) [facility] (pediatric) G47.10 Hypersomnia, unspecified F17.210 Nicotine dependence, cigarettes, uncomplicated J44.9 Chronic obstructive pulmonary disease, unspecified J45.909 Unspecified asthma, uncomplicated Office Visit 12/15/2016 2:40p [facility] Internal Regulo Gan NP B18.2 Chronic viral Medicine - [facility] hepatitis C N50.811 Right testicular pain B35.1 Tinea unguium Office Visit 12/12/2016 8:45a Pulmonology And Sleep Dayami Prado, R06.83 Snoring Services Of [facility] G47.8 Other sleep disorders G47.10 Hypersomnia, unspecified R41.840 Attention and concentration deficit E66.09 Other obesity due to excess calories Z68.39 Body mass index (BMI) 39.0-39.9, adult Office Visit 12/07/2016 8:40a [facility] Internal Regulo Gan MANAGER OF INTERNAL M79.604 Pain in right Medicine - [facility] leg F32.89 Other specified depressive episodes F41.9 Anxiety disorder, unspecified B35.1 Tinea unguium N50.811 Right testicular pain Office Visit 11/10/2016 3:40p [facility] Internal Regulo Malik, I10 Essential ( primary) Medicine - [facility] MANAGER OF INTERNAL hypertension F52.21 Male erectile disorder J45.20 Mild intermittent asthma, uncomplicated E78.2 Mixed hyperlipidemia Z11.3 Encntr screen for infections w sexl mode of transmiss M79.604 Pain in right leg Office Visit 03/03/2015 1:20p 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 Internal Regulo Malik, 782.2 Swelling Mass Or Medicine - [facility] MANAGER OF INTERNAL Lump Localized Superfical Office Visit 01/28/2015 10:20a [facility] Internal Regulo Malik, 401.1 Hypertension Benign Medicine - [facility] MANAGER OF INTERNAL 782.3 Edema Office Visit 12/04/2014 1:00p [facility] Internal Regulo Malik, 401.1 Hypertension Benign Medicine - [facility] MANAGER OF INTERNAL 724.2 Lumbago 780.59 Sleep Disturbances Other 789.01 Pain Abdominal Right Upper Quadrant Office Visit 11/03/2014 4:00p 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 Internal Regulo Malik, 530.81 Esophageal Reflux Medicine - [facility] MANAGER OF INTERNAL 401.1 Hypertension Benign 272.2 Hyperlipidemia Mixed 493.00 Asthma Extrinsic Unspecified 302.72 Psychosexual Dysfunction W/ Inhibited Sexual Excitement 070.70 Hepatitis C W/O Hepatic Coma NOS 782.2 Swelling Mass Or Lump Localized Superfical Plan of Treatment Future Appointment(s):02/11/2019 2:00 pm - Regulo Gan NP at [facility] Internal Medicine [facility]01/10/2019 - Regulo Gan NPM48.062 Spinal stenosis, lumbar region with neurogenic claudicationReferral:Floyd Mistry MD, Surgery, VmomiragnahfW28.511 Pain in right shoulderComments:I have referred you to orthopedics for further evaluation.Referral:Jennifer Griffin MD, Surgery, [id number] Essential (primary) hypertensionNew Medication:Labetalol HCL 100 mg - One tablet twice dailyComments:Start taking the Labetelol twice dailyFollow up:4 gqdxkM79.9 Anxiety disorder, unspecifiedNew Medication: Fluoxetine HCL 20 mg - 1 by mouth every dayLorazepam 0.5 mg - 1 tablet by mouth up to two times dailyComments:Start taking the fluoxetine daily.You can use the Ativan as needed, b ut try to use this sparingly.J01.90 Acute sinusitis, unspecifiedNew Medication:Amoxicillin/Clavulanate Potassium 875-125 mg - take one tablet q12 hours for 10 days
[2019-01-15 08:18] VITALS: BP 163/102
[2019-01-15] MEDS ORDERED: Ibuprofen TAB* 400 MG PO ONE (08:27)
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
== END 2019-01-15 09:20 | disposition home or self-care (01) ==
LOC: UCEAST 08:06
DX: S22.31XA Fracture of one rib, right side, initial encounter for closed fracture (principal); W19.XXXA Unspecified fall, initial encounter; Y92.9 Unspecified place or not applicable; I10 Essential (primary) hypertension; F17.210 Nicotine dependence, cigarettes, uncomplicated
CPT/HCPCS: 99212; A9270-GY; G0463